=== PATIENT | female | born 1935 | race Caucasian/White ===

== ENCOUNTER → 2016-09-19 | Outpatient (CLI) | payer OTHER ==
[~2016-09-19] MED LIST: ASPI81TA28 PO; ATEN50TA8 PO; CHOL100010 PO; CRS/10 PO; HYDR25TA4 PO; LOSA50TA6 PO; LUTE15CA PO; MAGN400T6 PO; OMEP40CA PO; POTA1TAB97 PO
[2016-09-19 14:57] LABS: BASO % 0.4 %; BASO ABS # 0.04 K/uL (0-0.2); COMPLETE YES; EOS % 2.8 %; HEMATOCRIT 39.7 % (37-47); IG% 0.1 %; LYMPH % 40.1 %; LYMPH ABS # 3.69 K/uL (1.2-3.4); MEAN CORPUSCULAR HEMOGLOBIN 32.5 pg (25-34); MEAN CORPUSCULAR HGB CONC 34.3 g/dl (32-36); MEAN PLATELET VOLUME 11.2 fL (7.4-10.4); MONO % 7.8 %; NEUT % 48.8 %; PLATELET COUNT 240 K/uL (130-400); RED BLOOD COUNT 4.18 M/uL (4.2-5.4)
[2016-09-19 15:10] LABS: ALT/SGPT 31 U/L (12-78); AST/SGOT 21 U/L (15-37); BLOOD UREA NITROGEN 17 mg/dl (7-18); BUN/CREATININE RATIO 17.3 (10-20); CALCIUM 9.9 mg/dl (8.5-10.1); CARBON DIOXIDE 31 mmol/L (21-32); CHLORIDE 102 mmol/L (98-107); GLUCOSE 84 mg/dl (70-99); MAGNESIUM 2.3 mg/dl (1.8-2.4); POTASSIUM 3.8 mmol/L (3.5-5.1); SODIUM 140 mmol/L (136-145)
[2016-09-19 15:17] LABS: ALKALINE PHOSPHATASE 74 U/L (45-117); CHOLESTEROL 222 mg/dl (0-200); HDL CHOLESTEROL 75 mg/dl; LDL CHOLESTEROL CALCULATED 112 mg/dl; TRIGLYCERIDES 174 mg/dl (0-150); VERY LOW DENSITY LIPOPROT CALC 35 mg/dl
--- NOTE | 2016-09-23 12:19 | CODING QUERY MEDICAL NECESSITY ---
SUPPORTING DIAGNOSIS NEEDED Dr. Degroot, A supporting diagnosis is required for the test/procedure performed on this patient in order for us to be reimbursed by the patient's insurance. Please provide a supporting diagnosis for the following test/procedure listed below next to the test name along with your signature. *If there is no additional diagnosis for this patient that would support the following test/procedure please document that below next to the test/procedure. Test(s)/Procedure(s) that require a supporting diagnosis: * ([id number]) VITAMIN D ASSAY DIAGNOSIS: DATE OF SERVICE: 09/19/16 Provider Signature: Date: Thank you Calvin Olmstead [facility] Information Management Once completed, please kindly fax back to [phone] For questions please call [phone]
== END | disposition home or self-care (01) ==
LOC: C.LABBC 09:52
PROVIDERS: ATTEND Family Medicine
DX: I10 Essential (primary) hypertension (principal); M85.80 Other specified disorders of bone density and structure, unspecified site; E78.5 Hyperlipidemia, unspecified; Z13.0 Encounter for screening for diseases of the blood and blood-forming organs and certain disorders involving the immune mechanism

== ENCOUNTER 2017-08-28 16:25 | Inpatient (IN) | payer OTHER ==
[~2017-08-28] VITALS: Ht 162.6 cm; Wt 53.0 kg
[2017-08-28] MEDS ORDERED: ACET1TAB84 PO (18:53)
[2017-08-28] MEDS ORDERED: NOTE (18:55)
[2017-08-28 19:01] LABS: ALBUMIN 3.5 gm/dl (3.4-5.0); ALT/SGPT 20 U/L (12-78); AST/SGOT 83 U/L (15-37); BLOOD UREA NITROGEN 19 mg/dl (7-18); CALCIUM 9.3 mg/dl (8.5-10.1); CARBON DIOXIDE 22 mmol/L (21-32); CREATININE 1.25 mg/dl (0.60-1.20); GLUCOSE 97 mg/dl (70-99); LIPASE 682 U/L (73-393); POTASSIUM 3.5 mmol/L (3.5-5.1); SODIUM 140 mmol/L (136-145)
--- NOTE | 2017-08-28 19:04 | DIAGNOSTIC IMAGING REPORT ---
(CHEST) THORAX WITHOUT CLINICAL HISTORY: Acute change in mental status PULMONARY MASS COMPARISON STUDY: December 2005 CT DOSE: 178.15 mGy.cm TECHNIQUE: CT of the thorax was performed from the thoracic inlet to the lung bases. Images are reviewed in the axial, sagittal, and coronal planes. IV contrast was not administered for this examination. A dose lowering technique was utilized adhering to the principles of ALARA. FINDINGS: Thyroid: Imaged portions of the thyroid gland are normal in appearance. Thoracic aorta: The thoracic aorta is normal in course and caliber, noting standard 3 vessel arch anatomy. Heart: The heart is normal in size and configuration, without pericardial effusion. Lungs and pleural spaces: There is an enlarging nodular airspace opacity within the left upper lobe measuring 52 x 32 x 45 mm. This is more elongated than is typical for neoplasm. The slow growth plate would also be unusual for neoplasm. Nevertheless the lesion is indeterminate, and pulmonary consultation consideration of follow-up bronchoscopy should be obtained. Right middle lobe atelectatic changes are visualized Mediastinum: There is mild mediastinal lymphadenopathy. There is a 15 mm subcarinal lymph node. There are borderline enlarged paratracheal and prevascular lymph nodes. Rbittney: Evaluation the hilar structures is difficult due to the lack of intravenous contrast. Prominent left hilar lymph nodes are suspected. Axilla: Since the prior study, the patient has developed left axillary lymphadenopathy. Upper abdomen: Partially visualized upper abdominal viscera is within normal limits. Skeletal structures: The bony trabecular pattern is somewhat mottled. While this may simply represent osteoporosis, one cannot exclude a diffuse infiltrative marrow process. IMPRESSION: 1. Enlarging nodular airspace opacity within the left upper lobe measuring 52 x 32 x 45 mm. As stated above, this is more elongated than is typical for neoplasm. In addition, this lesion was present in 2005 although it has increased in size. Pulmonary consultation is recommended in follow-up, as an unusual slowly growing neoplasm cannot be excluded. 2. Interval development of mild mediastinal lymphadenopathy 3. Interval development of left axillary lymphadenopathy 4. Mottled bony trabecular pattern Electronically signed by: Moi Best M.D. 08/28/2017 7:02 PM Dictated Date/Time: 08/28/2017 6:52 PM
[2017-08-28 19:05] LABS: HEMATOCRIT 32.9 % (37-47); MEAN CORPUSCULAR HEMOGLOBIN 31.4 pg (25-34); MEAN CORPUSCULAR HGB CONC 33.4 g/dl (32-36); NUCLEATED RED BLOOD CELL ABS 0.24 K/uL (0-0); PLATELET COUNT 96 K/uL (130-400); RED CELL DISTRIBUTION WIDTH CV 15.7 % (11.5-14.5); RED CELL DISTRIBUTION WIDTH SD 53.5 fL (36.4-46.3); WHITE BLOOD COUNT 16.06 K/uL (4.8-10.8)
[2017-08-28 19:06] LABS: ALKALINE PHOSPHATASE 792 U/L (45-117); TOTAL PROTEIN 7.4 gm/dl (6.4-8.2)
[2017-08-28 19:07] LABS: BASO % 0.6 %; EOS % 5.1 %; EOS ABS # 0.82 K/uL (0-0.5); IG# 0.42 K/uL (0.00-0.02); LYMPH ABS # 3.85 K/uL (1.2-3.4); MONO % 8.3 %; MONO ABS # 1.34 K/uL (0.11-0.59); NEUT % 59.4 %; NEUT ABS # 9.53 K/uL (1.4-6.5)
[2017-08-28 19:19] LABS: INR 1.3 (0.9-1.1); PTT PATIENT 27.1 SECONDS (21.0-31.0)
--- NOTE | 2017-08-28 19:41 | DIAGNOSTIC IMAGING REPORT ---
CHEST 2 VIEWS ROUTINE HISTORY: Altered mental status. COMPARISON: Chest CT 08/28/2017. Chest 06/20/2015. FINDINGS: No pneumothorax. No pleural effusions. The heart is normal in size. Increase in size in the 2.5 x 1.2 cm nodular density within the left upper lobe compared to the 2015 examination. Mild diffuse interstitial thickening has also progressed. IMPRESSION: 1. Mild diffuse interstitial thickening which has progressed. 2. Increase in size in the nonspecific 2.5 x 1.2 cm left upper lobe nodular density. This is better appreciated on the same day chest CT. Electronically signed by: Deshawn Cobos M.D. 08/28/2017 7:39 PM Dictated Date/Time: 08/28/2017 7:38 PM
[2017-08-28 20:06] LABS: INFLUENZA B ANTIGEN Neg for Influ B (NEG)
--- NOTE | 2017-08-28 21:05 | DIAGNOSTIC IMAGING REPORT ---
HEAD CT NONCONTRAST CT DOSE: 614.27 mGy.cm HISTORY: Altered mental status. TECHNIQUE: Multiaxial CT images of the head were performed without the use of intravenous contrast. Automated exposure control was utilized for this study. A dose lowering technique was utilized adhering to the principles of ALARA. Comparison: Head CT 03/06/2013. Findings: The paranasal sinuses and mastoid air cells are clear. The calvarium and skull base are intact. There is no mass, hematoma, midline shift, acute infarct. White matter hypodensity is nonspecific but suggestive of microvascular ischemic change. The ventricles and sulci demonstrate mild age-related involutional changes. Hypodensity within the left parietal lobe. This is new from the prior study but favors a chronic finding.. 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 Impression: 1. No acute intracranial abnormality. 2. Hypodensity within the left parietal lobe. 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 Electronically signed by: Deshawn Cobos M.D. 08/28/2017 9:03 PM Dictated Date/Time: 08/28/2017 8:55 PM
[2017-08-28] MEDS ORDERED: LORAZEPAM 2 MG/ML 1 ML VIAL IV STA (21:44)
[2017-08-28] MEDS ORDERED: ACETAMINOPHEN 325 MG TAB PO PRN (22:45)
[2017-08-28] MEDS ORDERED: ONDANSETRON INJ 2 MG/ML 2 ML VIAL IV PRN (22:45)
[2017-08-28] MEDS ORDERED: POLYETHYLENE (MIRALAX) 17 GM PACK PO PRN (22:45)
[2017-08-28] MEDS ORDERED: HEPARIN SOD 5000 UNIT/0.5 ML CARP SQ SCH (22:45)
--- NOTE | 2017-08-28 22:56 | EMERGENCY ROOM VISIT NOTE ---
History Report prepared by Noah: Heather York Under the Supervision of: Dr. Richard Longoria M.D. First contact with patient: 17:51 Chief Complaint: CONFUSION Stated Complaint: CONFUSION,WEAKNESS,PASSED OUT,RAMBLING Nursing Triage Summary: pt arrives with family ,pt with hx of alzheimers / dementia. reports pt has had increased confusion over the last week pt has had recent labs for liver function and these were elevated daughter reports recent episodes of "feeling dizzy , pt reports afraid all the time" History of Present Illness The patient is an 82 year old female who presents to the Emergency Room with complaints of worsening confusion starting 1 month ago. The patient's 6 months ago and the patient has been having a difficult time adjusting. The patient has a history of Alzheimer's dementia. She fell around 1 month ago and has been worsening since then. She has been rambling and getting argumentative. A couple days ago, she wandered away and got lost. Last week, she went to her PCP who found that her liver tests were elevated. Her daughter took her off all her medications because they seemed to make her confusion worse. The patient lives with a family member, but she is often alone as he works full time staff interpreter. She has been eating well. She denies any back pain or abdominal pain. She has lost weight. Source of History: patient, family Onset: 1 month ago Position: other (global) Quality: numbness (confusion) Timing: worsening Associated Symptoms: No abdominal pain, No back pain Review of Systems See HPI for pertinent positives and negatives. A total of ten systems were reviewed and were otherwise negative. Past Medical & Surgical Medical Problems: (1) Altered mental status (2) Gastric ulcer (3) HTN (hypertension) (4) Lung abnormality (5) Pneumonia Family History Hypertension Social History Smoking Status: Never Smoker Drug Use: none Marital Status: Occupation Status: retired Current/Historical Medications Scheduled Aspirin (Aspir-81), 1 TAB PO DAILY Losartan Potassium (Cozaar), 50 MG PO DAILY Scheduled PRN Acetaminophen (Tylenol Arthritis Ext Rel), 650 MG PO Q12 PRN for Pain Hydroxyzine Hcl (Hydroxyzine Hcl), 5 ML PO TID PRN for Anxiety Miscellaneous Medications [Note] Allergies Coded Allergies: Statins (Verified Adverse Reaction, Unknown, severe muscle pain, 12/21/15) Physical Exam Vital Signs Date Time Temp Pulse Resp B/P (MAP) Pulse Ox O2 Delivery O2 Flow Rate FiO2 08/28/17 22:48 96 16 143/122 95 Room Air 08/28/17 22:33 92 08/28/17 21:31 188/167 08/28/17 21:30 109 28 97 08/28/17 21:19 99 20 187/101 96 Room Air 08/28/17 20:21 104 20 162/103 95 Room Air 08/28/17 18:33 86 08/28/17 18:27 91 12 193/101 95 Room Air 08/28/17 16:45 36.7 92 20 193/73 95 Room Air Physical Exam Physical Exam GENERAL: She is alert and oriented x1. She appears well-developed and well- nourished. She does not appear distressed. ____ HENT: Exam performed. Head: Normocephalic and atraumatic. Right Ear: External ear normal. No mastoid tenderness. Left Ear: External ear normal. No mastoid tenderness. Mouth/Throat: The oropharynx is clear and moist. No trismus in the jaw. No dental abscesses or uvula swelling. No oropharyngeal exudate or tonsillar abscesses. ____ EYES: Conjunctivae and EOM are normal. Pupils are equal, round, and reactive to light. Right eye exhibits no discharge. Left eye exhibits no discharge. No scleral icterus. ____ NECK: Normal range of motion. Neck supple. No JVD present. No spinous process tenderness present. No carotid bruit present. No rigidity. No tracheal deviation and normal range of motion present. No Brudzinski's sign and no Kernig 's sign noted. ____ CV: Normal rate, regular rhythm, normal heart sounds and intact distal pulses. There is no peripheral edema. Palpable radial pulses bue. ____ PULM/CHEST: Effort normal and breath sounds normal. No respiratory distress. No stridor. She has no wheezes. She has no rales. Chest Wall: She exhibits no tenderness. ____ ABD: The abdomen is soft. Bowel sounds are normal. She has no distension. No mass is present. There is no tenderness. There is no rebound, no guarding, no Junior's sign and no tenderness at McBurney's point. Rovsig negative MUSC/SKEL: Normal range of motion. There is no peripheral edema, tenderness or deformity. LYMPH: No cervical adenopathy. ____ NEURO: She is alert and oriented x1. She has normal strength. No cranial nerve deficit or sensory deficit. Coordination and gait normal. SKIN: Skin is warm and dry. She is not diaphoretic. ____ PSYCH: She has an agitated mood____ Medical Decision & Procedures ER Provider Diagnostic Interpretation: Radiology results as stated below per my review and radiologist interpretation: CHEST 2 VIEWS ROUTINE HISTORY: Altered mental status. COMPARISON: Chest CT 08/28/2017. Chest 06/20/2015. FINDINGS: No pneumothorax. No pleural effusions. The heart is normal in size. Increase in size in the 2.5 x 1.2 cm nodular density within the left upper lobe compared to the 2015 examination. Mild diffuse interstitial thickening has also progressed. IMPRESSION: 1. Mild diffuse interstitial thickening which has progressed. 2. Increase in size in the nonspecific 2.5 x 1.2 cm left upper lobe nodular density. This is better appreciated on the same day chest CT. Electronically signed by: Deshawn Cobos M.D. 08/28/2017 7:39 PM Dictated Date/Time: 08/28/2017 7:38 PM (CHEST) THORAX WITHOUT CLINICAL HISTORY: Acute change in mental status PULMONARY MASS COMPARISON STUDY: December 2005 CT DOSE: 178.15 mGy.cm TECHNIQUE: CT of the thorax was performed from the thoracic inlet to the lung bases. Images are reviewed in the axial, sagittal, and coronal planes. IV contrast was not administered for this examination. A dose lowering technique was utilized adhering to the principles of ALARA. FINDINGS: Thyroid: Imaged portions of the thyroid gland are normal in appearance. Thoracic aorta: The thoracic aorta is normal in course and caliber, noting standard 3 vessel arch anatomy. Heart: The heart is normal in size and configuration, without pericardial effusion. Lungs and pleural spaces: There is an enlarging nodular airspace opacity within the left upper lobe measuring 52 x 32 x 45 mm. This is more elongated than is typical for neoplasm. The slow growth plate would also be unusual for neoplasm. Nevertheless the lesion is indeterminate, and pulmonary consultation consideration of follow-up bronchoscopy should be obtained. Right middle lobe atelectatic changes are visualized Mediastinum: There is mild mediastinal lymphadenopathy. There is a 15 mm subcarinal lymph node. There are borderline enlarged paratracheal and prevascular lymph nodes. Brittney: Evaluation the hilar structures is difficult due to the lack of intravenous contrast. Prominent left hilar lymph nodes are suspected. Axilla: Since the prior study, the patient has developed left axillary lymphadenopathy. Upper abdomen: Partially visualized upper abdominal viscera is within normal limits. Skeletal structures: The bony trabecular pattern is somewhat mottled. While this may simply represent osteoporosis, one cannot exclude a diffuse infiltrative marrow process. IMPRESSION: 1. Enlarging nodular airspace opacity within the left upper lobe measuring 52 x 32 x 45 mm. As stated above, this is more elongated than is typical for neoplasm. In addition, this lesion was present in 2005 although it has increased in size. Pulmonary consultation is recommended in follow-up, as an unusual slowly growing neoplasm cannot be excluded. 2. Interval development of mild mediastinal lymphadenopathy 3. Interval development of left axillary lymphadenopathy 4. Mottled bony trabecular pattern Electronically signed by: Moi Best M.D. 08/28/2017 7:02 PM Dictated Date/Time: 08/28/2017 6:[address] CT DOSE: 614.27 mGy.cm HISTORY: Altered mental status. TECHNIQUE: Multiaxial CT images of the head were performed without the use of intravenous contrast. Automated exposure control was utilized for this study. A dose lowering technique was utilized adhering to the principles of ALARA. Comparison: Head CT 03/06/2013. Findings: The paranasal sinuses and mastoid air cells are clear. The calvarium and skull base are intact. There is no mass, hematoma, midline shift, acute infarct. White matter hypodensity is nonspecific but suggestive of microvascular ischemic change. The ventricles and sulci demonstrate mild age-related involutional changes. Hypodensity within the left parietal lobe. This is new from the prior study but favors a chronic finding.. 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 Impression: 1. No acute intracranial abnormality. 2. Hypodensity within the left parietal lobe. 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 Electronically signed by: Deshawn Cobos M.D. 08/28/2017 9:03 PM Dictated Date/Time: 08/28/2017 8:55 PM Laboratory Results 08/28/17 18:22 Red Blood Count 3.50, Mean Corpuscular Volume 94.0, Mean Corpuscular Hemoglobin 31.4, Mean Corpuscular Hemoglobin Concent 33.4, Mean Platelet Volume 12.0, Neutrophils (%) (Auto) 59.4, Lymphocytes (%) (Auto) 24.0, Monocytes (%) (Auto) 8.3, Eosinophils (%) (Auto) 5.1, Basophils (%) (Auto) 0.6, Neutrophils # (Auto) 9.53, Lymphocytes # (Auto) 3.85, Monocytes # (Auto) 1.34, Eosinophils # (Auto) 0.82, Basophils # (Auto) 0.10 08/28/17 18:22 Test 08/28/17 16:50 08/28/17 18:22 08/28/17 18:23 08/28/17 18:32 Urine Color YELLOW Urine Appearance CLEAR (CLEAR) Urine pH 5.5 (4.5-7.5) Urine Specific [place] 1.016 (1.000-1.030) Urine Protein 1+ (NEG) Urine Glucose (UA) NEG (NEG) Urine Ketones NEG (NEG) Urine Occult Blood 2+ (NEG) Urine Nitrite NEG (NEG) Urine Bilirubin NEG (NEG) Urine Urobilinogen NEG (NEG) Urine Leukocyte Esterase MODERATE (NEG) Urine WBC (Auto) 5-10 /hpf (0-5) Urine RBC (Auto) 5-10 /hpf (0-4) Urine Hyaline Casts (Auto) 1-5 /lpf (0-5) Urine Epithelial Cells (Auto) >30 /lpf (0-5) Urine Bacteria (Auto) NEG (NEG) Urine Pathogenic Casts 0-3 RBC CASTS /lpf (0) White Blood Count 16.06 K/uL (4.8-10.8) Red Blood Count 3.50 M/uL (4.2-5.4) Hemoglobin 11.0 g/dL (12.0-16.0) Hematocrit 32.9 % (37-47) Mean Corpuscular Volume 94.0 fL (80-100) Mean Corpuscular Hemoglobin 31.4 pg (25-34) Mean Corpuscular Hemoglobin Concent 33.4 g/dl (32-36) Platelet Count 96 K/uL (130-400) Mean Platelet Volume 12.0 fL (7.4-10.4) Neutrophils (%) (Auto) 59.4 % Lymphocytes (%) (Auto) 24.0 % Monocytes (%) (Auto) 8.3 % Eosinophils (%) (Auto) 5.1 % Basophils (%) (Auto) 0.6 % Neutrophils # (Auto) 9.53 K/uL (1.4-6.5) Lymphocytes # (Auto) 3.85 K/uL (1.2-3.4) Monocytes # (Auto) 1.34 K/uL (0.11-0.59) Eosinophils # (Auto) 0.82 K/uL (0-0.5) Basophils # (Auto) 0.10 K/uL (0-0.2) RDW Standard Deviation 53.5 fL (36.4-46.3) RDW Coefficient of Variation 15.7 % (11.5-14.5) Immature Granulocyte % (Auto) 2.6 % Immature Granulocyte # (Auto) 0.42 K/uL (0.00-0.02) Nucleated RBC Absolute Count (auto) 0.24 K/uL (0-0) Nucleated Red Blood Cells % 1.5 % Platelet Estimate DECREASED Prothrombin Time 13.6 SECONDS (9.0-12.0) Prothromb Time International Ratio 1.3 (0.9-1.1) Activated Partial Thromboplast Time 27.1 SECONDS (21.0-31.0) Partial Thromboplastin Ratio 1.0 Venous Blood pH 7.42 (7.36-7.41) Venous Blood Partial Pressure CO2 38 mmHg (38.0-50.0) Venous Blood Partial Pressure O2 33 mmHg Venous Blood HCO3 24 mmol/L Venous Blood Oxygen Saturation < 60.0 % Venous Blood Base Excess -0.2 mEq/L Anion Gap 12.0 mmol/L (3-11) Est Creatinine Clear Calc Drug Dose 29.5 ml/min Estimated GFR () 46.1 Estimated GFR (Non- 39.7 BUN/Creatinine Ratio 14.9 (10-20) Lactic Acid Level 1.7 mmol/L (0.4-2.0) Calcium Level 9.3 mg/dl (8.5-10.1) Total Bilirubin 0.7 mg/dl (0.2-1) Aspartate Amino Transf (AST/SGOT) 83 U/L (15-37) Alanine Aminotransferase (ALT/SGPT) 20 U/L (12-78) Alkaline Phosphatase 792 U/L (45-117) Ammonia 26.3 umol/L (11-32) Troponin I < 0.015 ng/ml (0-0.045) Total Protein 7.4 gm/dl (6.4-8.2) Albumin 3.5 gm/dl (3.4-5.0) Globulin 3.9 gm/dl (2.5-4.0) Albumin/Globulin Ratio 0.9 (0.9-2) Lipase 682 U/L (73-393) Bedside Glucose 101 mg/dl (70-90) Influenza Type A Antigen Neg for Influ A (NEG) Influenza Type B Antigen Neg for Influ B (NEG) Laboratory results reviewed by me Medications Administered Medications (Trade) Dose Ordered Sig/Jagdeep Route Start Time Stop Time Status Last Admin Dose Admin Lorazepam (Ativan Inj) 1 mg NOW STAT IV 08/28/17 21:44 08/28/17 21:45 DC 08/28/17 21:53 1 MG ECG Per My Interpretation Indication: altered mental status Rate (beats per minute): 84 Rhythm: sinus rhythm Findings: other (GA, QRS, QTc within normal limits, no ST elevation or ST depression) ED Course 1757: The patient was evaluated in room C10. A complete history and physical exam was performed. 2137: VSS. Pt is agitated, trying to get up out of bed. Family states she needs to be calmed down. I will order 1 mg Ativan. Urine is contaminated. Labs show elevated white count at 16. Pt has remained afebrile, no meningeal signs. Unsure of the source of leukocytosis. CT chest shows no acute infiltrate, but a possible neoplasm which might be the cause of the leukocytosis. Patients daughter is the medical POA was made aware of the findings. She agrees with admission for further workup and placement in snf. Pt will be admitted to the hospitalist service. Patient's daughter at bedside states she is the medical power of assistant district attorney and should any questions arise overnight she can be contacted on her cell phone [phone], her name is Felecia. 2140: I discussed the patient's case with Dr. Sherman, [facility] hospitalist. The patient will be evaluated for further treatment and disposition. Medical Decision VSS. Pt is agitated, trying to get up out of bed. Family states she needs to be calmed down. I will order 1 mg Ativan. Urine is contaminated. Labs show elevated white count at 16. Pt has remained afebrile, no meningeal signs. Unsure of the source of leukocytosis. CT chest shows no acute infiltrate, but a possible neoplasm which might be the cause of the leukocytosis. Patients daughter is the medical POA was made aware of the findings. She agrees with admission for further workup and placement in snf. Pt will be admitted to the hospitalist service. Patient's daughter at bedside states she is the medical power of assistant district attorney and should any questions arise overnight she can be contacted on her cell phone [phone], her name is Felecia. Medication Reconcilliation Current Medication List: was personally reviewed by me Blood Pressure Screening Patient's blood pressure: Elevated blood pressure Blood pressure disposition: Referred to PCP Consults Time Called: 2137 Consulting Physician: Dr. Sherman [facility] Returned Call: 2140 Discussed the patient's case. The patient will be evaluated for further treatment and disposition. Impression Primary Impression: Lung mass Scribe Attestation The scribe's documentation has been prepared under my direction and personally reviewed by me in its entirety. I confirm that the note above accurately reflects all work, treatment, procedures, and medical decision making performed by me. The chart was completed utilizing [employer]mobile Speech voice recognition software. Grammatical errors, random word insertions, pronoun errors, and incomplete sentences are an occasional consequence of this system due to software limitations, ambient noise, and hardware issues. Any formal questions or concerns about the content, text, or information contained within the body of this dictation should be directly addressed to the physician for clarification. Departure Information Dispostion Being Evaluated By Hospitalist Referrals Gael Bautista III, M.D. (PCP) Patient Instructions My [facility]
[2017-08-28] MEDS ORDERED: LOSA50TA6 PO (23:39)
[2017-08-28] MEDS ORDERED: ASPI-232 PO (23:39)
[2017-08-28] MEDS ORDERED: HYDR1SYP PO (23:39)
[2017-08-29] VITALS (8 sets, daily range): BP systolic 153–195; BP diastolic 75–88; PULSE 81–90; TEMP 36.4–36.9; O2SAT 93–94; Ht 162.6 cm; Wt 53.0 kg
--- NOTE | 2017-08-29 02:03 | History and Physical ---
History & Physical Date & Time of Service: Aug 28, 2017 at 10:32 Chief Complaint: Ams, Lung Abnormality Primary Care Physician: Gael Bautista III, M.D. History of Present Illness Source: family, clinic records, hospital records Patient is an 82 yo female who was brought from home by her daughter for complaints that the patient needs placement and 24 hour supervision. The patient was reportedly lost and wandering her neighborhood and has become increasingly confused, neglectful, and forgetful since last summer. The patient was seen after she received ativan and thus she was unable to provide any ROS or history. All information was obtained from the patient's daughter and the medical records. The patient has been steadily declining since last summer when her of 60+ years . Since then the patient experienced stages of grief but also stopped eating, lost weight, became angry, withdrawn, and forgetful. The patient resides with her grandson who works during the day and the patient is home alone. The daughter lives in [place] and her brother in [place] so no other family is around. The patient has been neglecting herself, her 2 dogs, and her plants which is very unlike her. She also has a great deal of difficulty recalling short term memories. She has had outpatient work up and is demonstrating dementia, but she has drastically declined in the past 1 month and the patient is no longer safe living at home where she is alone for much of the day. The patient's daughter is here from [place] and has been looking into placement but the events from yesterday have escalated the need to find a place for the patient to live. No focal deficits noted by the family; appetite has remained poor, patient ambulates independently. The patient did have a fall earlier this month but was not brought to the hospital at the time. The patient' s daughter also reports that the patient has not slept in the last few days and that prior to her visiting, the patient was administering her own medications and was sometimes taking double doses and thus the daughter stopped all the meds for the last week. Past Medical/Surgical History Medical Problems: (1) Altered mental status (2) Hx of Gastric ulcer (3) HTN (hypertension) (4) CKD Stage III Family History Hypertension Social History Smoking Status: Never Smoker Drug Use: none Marital Status: Housing status: lives with family Occupational Status: retired Immunizations History of Influenza Vaccine: Yes History of Tetanus Vaccine?: Unknown History of Pneumococcal: Yes History of Hepatitis B Vaccine: No Multi-Drug Resistant Organisms History of MDRO: No Allergies Coded Allergies: Statins (Verified Adverse Reaction, Unknown, severe muscle pain, 12/21/15) Home Medications Scheduled Aspirin (Aspir-81), 1 TAB PO DAILY Losartan Potassium (Cozaar), 50 MG PO DAILY Scheduled PRN Acetaminophen (Tylenol Arthritis Ext Rel), 650 MG PO Q12 PRN for Pain Hydroxyzine Hcl (Hydroxyzine Hcl), 5 ML PO TID PRN for Anxiety Miscellaneous Medications [Note] Review of Systems Unable to obtain due to patient mentation Physical Exam Vital Signs Date Time Temp Pulse Resp B/P (MAP) Pulse Ox O2 Delivery O2 Flow Rate FiO2 08/29/17 01:17 36.4 88 18 195/84 Room Air 08/29/17 00:14 82 18 141/99 96 Room Air 08/28/17 22:48 96 16 143/122 95 Room Air 08/28/17 22:33 92 08/28/17 21:31 188/167 08/28/17 21:30 109 28 97 08/28/17 21:19 99 20 187/101 96 Room Air 08/28/17 20:21 104 20 162/103 95 Room Air 08/28/17 18:33 86 08/28/17 18:27 91 12 193/101 95 Room Air 08/28/17 16:45 36.7 92 20 193/73 95 Room Air General Appearance: WD/WN, no apparent distress Head: normocephalic, atraumatic Eyes: PERRL, EOMI, sclerae normal ENT: hearing grossly normal Neck: supple, no JVD, no carotid bruits, trachea midline Respiratory/Chest: chest non-tender, lungs clear, normal breath sounds, no respiratory distress, no accessory muscle use Cardiovascular: regular rate, rhythm, no edema, no gallop, no JVD, no murmur Abdomen/GI: normal bowel sounds, non tender, soft, no organomegaly Back: normal inspection Extremities/Musculoskelatal: no calf tenderness, normal capillary refill, + pedal edema Neurologic/Psych: + depressed affect, + disoriented, + pertinent finding Skin: normal color, warm/dry, no rash Diagnostics Laboratory Results Results Past 24 Hours Test 2/26/18 16:50 08/28/17 18:22 08/28/17 18:23 08/28/17 18:32 Range/Units Urine Color YELLOW Urine Appearance CLEAR CLEAR Urine pH 5.5 4.5-7.5 Urine Specific [place] 1.016 1.000-1.030 Urine Protein 1+ NEG Urine Glucose (UA) NEG NEG Urine Ketones NEG NEG Urine Occult Blood 2+ NEG Urine Nitrite NEG NEG Urine Bilirubin NEG NEG Urine Urobilinogen NEG NEG Urine Leukocyte Esterase MODERATE NEG Urine WBC (Auto) 5-10 0-5 /hpf Urine RBC (Auto) 5-10 0-4 /hpf Urine Hyaline Casts (Auto) 1-5 0-5 /lpf Urine Epithelial Cells (Auto) >30 0-5 /lpf Urine Bacteria (Auto) NEG NEG Urine Pathogenic Casts 0-3 RBC CASTS 0 /lpf White Blood Count 16.06 4.8-10.8 K/uL Red Blood Count 3.50 4.2-5.4 M/uL Hemoglobin 11.0 12.0-16.0 g/dL Hematocrit 32.9 37-47 % Mean Corpuscular Volume 94.0 80-100 fL Mean Corpuscular Hemoglobin 31.4 25-34 pg Mean Corpuscular Hemoglobin Concent 33.4 32-36 g/dl Platelet Count 96 130-400 K/uL Mean Platelet Volume 12.0 7.4-10.4 fL Neutrophils (%) (Auto) 59.4 % Lymphocytes (%) (Auto) 24.0 % Monocytes (%) (Auto) 8.3 % Eosinophils (%) (Auto) 5.1 % Basophils (%) (Auto) 0.6 % Neutrophils # (Auto) 9.53 1.4-6.5 K/uL Lymphocytes # (Auto) 3.85 1.2-3.4 K/uL Monocytes # (Auto) 1.34 0.11-0.59 K/uL Eosinophils # (Auto) 0.82 0-0.5 K/uL Basophils # (Auto) 0.10 0-0.2 K/uL RDW Standard Deviation 53.5 36.4-46.3 fL RDW Coefficient of Variation 15.7 11.5-14.5 % Immature Granulocyte % (Auto) 2.6 % Immature Granulocyte # (Auto) 0.42 0.00-0.02 K/uL Nucleated RBC Absolute Count (auto) 0.24 0-0 K/uL Nucleated Red Blood Cells % 1.5 % Platelet Estimate DECREASED Prothrombin Time 13.6 9.0-12.0 SECONDS Prothromb Time International Ratio 1.3 0.9-1.1 Activated Partial Thromboplast Time 27.1 21.0-31.0 SECONDS Partial Thromboplastin Ratio 1.0 Venous Blood pH 7.42 7.36-7.41 Venous Blood Partial Pressure CO2 38 38.0-50.0 mmHg Venous Blood Partial Pressure O2 33 mmHg Venous Blood HCO3 24 mmol/L Venous Blood Oxygen Saturation < 60.0 % Venous Blood Base Excess -0.2 mEq/L Sodium Level 140 136-145 mmol/L Potassium Level 3.5 3.5-5.1 mmol/L Chloride Level 106 98-107 mmol/L Carbon Dioxide Level 22 21-32 mmol/L Anion Gap 12.0 3-11 mmol/L Blood Urea Nitrogen 19 7-18 mg/dl Creatinine 1.25 0.60-1.20 mg/dl Est Creatinine Clear Calc Drug Dose 29.5 ml/min Estimated GFR () 46.1 Estimated GFR (Non- 39.7 BUN/Creatinine Ratio 14.9 10-20 Random Glucose 97 70-99 mg/dl Lactic Acid Level 1.7 0.4-2.0 mmol/L Calcium Level 9.3 8.5-10.1 mg/dl Total Bilirubin 0.7 0.2-1 mg/dl Aspartate Amino Transf (AST/SGOT) 83 15-37 U/L Alanine Aminotransferase (ALT/SGPT) 20 12-78 U/L Alkaline Phosphatase 792 45-117 U/L Ammonia 26.3 11-32 umol/L Troponin I < 0.015 0-0.045 ng/ml Total Protein 7.4 6.4-8.2 gm/dl Albumin 3.5 3.4-5.0 gm/dl Globulin 3.9 2.5-4.0 gm/dl Albumin/Globulin Ratio 0.9 0.9-2 Lipase 682 73-393 U/L Bedside Glucose 101 70-90 mg/dl Influenza Type A Antigen Neg for Influ A NEG Influenza Type B Antigen Neg for Influ B NEG Normal EKG Impression Assessment and Plan COGNITIVE DECLINE: -has been undergoing workup as an outpatient and likely has dementia, however symptoms have accelerated in the past month without a clear cause -will evaluate for infection -CT chest showing prominent LN and a slowly increasing opacity which could be a neoplasm; possibly lymphoma -patient's daughter wishes to hold off on Psych or medications for depression until workup is completed 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 on non contrast CT chest -possibly slow growing neoplasm, but was present on a CT scan in 2006 -Pulmonary consulted -outpatient labs revealed elevated alk phos (633) and elevated bone specific alk phos -patient's daughter is interested in full workup of the above as per discussion with her LEUKOCYTOSIS: -with the above comorbidities -have started empiric cetriaxone and azithro to cover pulm source -obtain blood, urine, and sputum cultures as able HTN: -stable -continue home meds Level of Care Telemetry Advanced Directives Existing Living Will: Yes Existing Power of Outside Production Inspector: Yes Resuscitation Status FULL RESUSCITATION (If there is a meaningful chance of recovery per discussion with the patient's daughter/POA) VTE Prophylaxis VTE Risk Assessment Done? Y/N: Yes Risk Level: Moderate
[2017-08-29] MEDS: CEFTRIAXONE SOD INJ 1 GM in DEXTROSE 5% ADD-VANTAGE 50ML 50 ML IV SCH (02:22)
[2017-08-29 05:42] LABS: HEMATOCRIT 28.4 % (37-47); HEMOGLOBIN 9.1 g/dL (12.0-16.0); MEAN CELL VOLUME 94.4 fL (80-100); MEAN CORPUSCULAR HEMOGLOBIN 30.2 pg (25-34); NUCLEATED RED BLOOD CELL ABS 0.19 K/uL (0-0); RED CELL DISTRIBUTION WIDTH CV 15.6 % (11.5-14.5); WHITE BLOOD COUNT 11.96 K/uL (4.8-10.8)
[2017-08-29 05:47] LABS: MEAN PLATELET VOLUME 11.5 fL (7.4-10.4); PLATELET COUNT 76 K/uL (130-400)
[2017-08-29 06:10] LABS: CALCIUM 9.1 mg/dl (8.5-10.1); CREATININE 0.99 mg/dl (0.60-1.20); POTASSIUM 3.7 mmol/L (3.5-5.1)
--- NOTE | 2017-08-29 08:06 | DIAGNOSTIC IMAGING REPORT ---
ABDOMEN LIMITED (US) CLINICAL HISTORY: 82 years-old Female presenting with RUQ, elevated alk phos. TECHNIQUE: Real-time grayscale and limited color Doppler ultrasound imaging of the abdomen limited to the right upper quadrant was performed. COMPARISON: CT from 06/20/2015. FINDINGS: Pancreas: Visualized portions of the pancreatic head and body normal. Liver: Hyperechogenic parenchyma with heterogeneous echotexture, likely indicating fibrosis or steatosis. The liver measures 14.9 cm in maximal sagittal dimension. No sonographic evidence of hepatic mass. Main portal vein patent with normal directional flow. Biliary: No intrahepatic biliary ductal dilatation. Common bile duct measures up to 4 mm in diameter. Gallbladder: Gallstones without evidence of gallbladder distention, wall thickening, or pericholecystic fluid or inflammatory change. Right kidney: Normal in appearance. No hydronephrosis. Ascites: None. IMPRESSION: 1. No cholelithiasis or biliary ductal dilatation. 2. Heterogeneity of liver parenchyma could suggest underlying steatosis or fibrosis. Electronically signed by: Jaocb Soto M.D. 08/29/2017 8:05 AM Dictated Date/Time: 08/29/2017 8:04 AM
[2017-08-29] MEDS: AZITHROMYCIN 250 MG TAB PO SCH (09:04)
--- NOTE | 2017-08-29 09:54 | PULMONARY CONSULTATION ---
DATE OF CONSULTATION: 08/29/2017 TIME: 8:45 p.m. REPORT OF CONSULTATION: The patient was seen in room 401. She is an 82-year-old female who was brought to the Emergency Room yesterday because of progressive confusion. The patient is not a good or reliable historian. The patient has been wandering away from her home. Earlier this week, she apparently was found outside in her [facility] and wandering. The patient herself is unable to give substantial history. After I had seen the patient, her daughter Felecia came and I spoke with her. The patient's grandson has been staying with her. The patient's in 2017. Since then, she has had a downhill course of progressive dementia-like symptoms. She has had a preliminary evaluation by her family doctor, Dr. Gael Bautista. The patient reportedly has been losing weight. Her appetite has decreased a lot. Initially, her family thought that this was just all response to the patient's passing away but it has been much more progressive. Pulmonary consultation is requested because of an abnormal CAT scan of the chest. She did have a chest x-ray done yesterday that suggested a nonspecific density in the left upper lung field. This had increased in prominence compared with the prior chest x-ray done on 06/20/2015. This led to the patient having a CAT scan of the chest done. There is a very irregular nodular airspace opacity in the left upper lobe which measures 52 x 32 x 45 mm. It is more elongated than is typical for a neoplasm. There was a prior CAT scan done in 12/2005. There was a density in the same area back in 2005 but it has changed in shape and contour and it has gotten somewhat larger. Nonetheless, almost for sure, this is the same density which is now 12 years later. The patient reportedly has not had any respiratory symptoms. She denies having any shortness of breath. She states she has an occasional cough, although I do not know if this is reliable. She tells me she had some pain in the left lower chest posteriorly. Her daughter told me that the family doctor had it evaluated and they found a small rib fracture recently. The suspicion is that the patient has been having some falling episodes. Indeed, she seemed to have numerous areas of ecchymosis on her legs. She did have a CAT scan of the chest done when she came in and this showed no acute intracranial abnormality. 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 PAST PULMONARY HISTORY: None. PAST SURGICAL HISTORY: The patient denies any surgeries and none were listed. Based on my exam, it appears she has had prior cataract surgeries and she has a scar in the lower abdominal region. PAST MEDICAL HISTORY: Listed as Alzheimer disease, gastric ulcer, hypertension and childbirth x2. SOCIAL HISTORY: Tobacco, never. ETOH -- rare. ALLERGIES: LISTED ALLERGIES TO STATINS. MEDICATIONS AN OUTPATIENT: 1. Aspirin 81 mg. 2. Hydroxyzine 10 mg per 5 mL, to be taken 5 mL t.i.d. p.r.n. anxiety. 3. Losartan 50 mg daily. REVIEW OF SYSTEMS: This is difficult to obtain as the patient is not oriented. Nonetheless, it would be negative except for the above-mentioned complaints. FAMILY HISTORY: Noncontributory in light of the patient's age of 82 years. We also do not have any definite family history. 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 I could not confirm this, however. PHYSICAL EXAMINATION: GENERAL: The patient is a very pleasant but confused 82-year-old female. She is cooperative. She is alert. She does not know that she is in the hospital. HEENT: Eye exam suggests implants bilaterally. Nasal passages are clear. Mouth exam shows a denture on the top but is otherwise unremarkable. NECK: Palpation of the neck reveals no lymph nodes. Palpation of the axilla did not reveal definite lymph nodes. CHEST: Chest is of normal expansion. VITAL SIGNS: Temperature 36.8. Heart rate is 85 per minute. The rhythm is regular. Blood pressure 167/86. LUNGS: Auscultation of the lung nelson reveals them to be clear bilaterally. Her respiratory rate is 18 breaths per minute. Her oxygen saturation is 94% on room air. ABDOMEN: Examination of the abdomen suggests perhaps some weight loss. Her BMI is only 21.8. Weight is 57.7 kilograms. Bowel sounds are present. The aorta is prominent. I do not hear a definite bruit. I cannot exclude by palpation an abdominal aortic aneurysm. EXTREMITIES: Examination of the extremities reveals numerous areas of ecchymoses on both legs. There is no cyanosis, clubbing or edema. LABORATORY DATA: White count yesterday was 16.06, today it is 11.96. Hemoglobin yesterday 11 and today down to 9.1. Platelets were 96,000 and are now down to 76,000. Coags were not significantly abnormal. INR was 1.3. Urinalysis shows +1 protein, +2 blood, 5-10 WBCs, 5-10 RBCs and negative for bacteria. Venous blood gas showed pH 7.42 with pCO2 of 38 and pO2 of 33. Electrolytes show sodium 140, potassium 3.5, chloride 106, bicarbonate 22. BUN was 19 with a creatinine of 1.25. This morning, the BUN is 16 with a creatinine of 0.99. Blood sugar was 101. Alkaline phosphatase was elevated at 792. AST was elevated at 83. ALT was 20. Lipase was elevated at 682. Flu test was negative. Ultrasound of the abdomen reported no evidence of cholelithiasis or ductal dilation. The pancreatic head and body were normal as visualized. No comment was made regarding the aorta. Heterogeneity of the liver parenchyma could suggest steatosis or fibrosis. IMPRESSION: 1. Nodular airspace opacity, left upper lobe. 2. Mild mediastinal adenopathy. 3. Dementia. 4. Anemia. 5. Thrombocytopenia. 6. Abnormal liver function tests. COMMENTS: I spoke with the patient's daughter Felecia. I have reviewed the prior CAT scan of 2005 and the current CAT scan. There obviously has been an increase in the contour and size of this density. It is not strongly suggestive for neoplasm. In light of the patient's apparent significant dementia and considering the fact that this has been present for over 12 years, I do not think she should need to undergo any biopsy procedures. I do not believe the benefits without outweigh the risks involved. The patient's daughter was agreeable with this perspective. She has other metabolic abnormalities in terms of the laboratory tests that were abnormal as noted above. One could consider doing an ultrasound of the aorta in the abdomen for completeness. I will defer all of that workup to the hospitalist team. I do not believe there is a need to follow this patient regularly. Please feel free to call, however, if I might help in any way regarding a respiratory problem. Thank you for asking me to assist in her care.
--- NOTE | 2017-08-29 17:11 | Progress Note ---
Internal Med Progress Note Date of Service: Aug 29, 2017. Provider Documentation: SUBJECTIVE: resting in bed seems somewhat restless can tell her lui kulkarni, knows that she is in hospital, thinks this is august but tells year as 2017. denies any pain, or sob or nausea afebrile says she wants to go home OBJECTIVE: Vital Signs-as noted below Exam: General-alert and awake. somewhat restless ENT-normal hearing Neck-no neck masses Lungs-cta b/l no wheezing or crackles Heart-s1 and s2 heard regular no murmurs Abdomen-soft bowel sounds present non tender no distension Extremities-no edema no erythema Neuro-alert and awake and oriented x 2 moves extremities Lab data as noted below. 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 on non contrast CT chest Present on a CT scan in 2005 but increased in size now seen by pulmonary and no further workup planned as it is very slow growing and current patient status LEUKOCYTOSIS: Empirically started on cetriaxone and azithro to cover pulm source will f/u cx HTN: on losartan Anemia and thrombocytopenia will f/u iron studies, vitamin b12 and folate levels stool for Hemoccult DVT PROPHYLAXIS scds DISPOSITION monitor in medical floor social service for d/c planning Vital Signs: Date Time Temp Pulse Resp B/P (MAP) Pulse Ox O2 Delivery O2 Flow Rate FiO2 08/29/17 16:30 36.6 90 20 170/79 (109) 93 Room Air 08/29/17 16:00 Room Air 08/29/17 11:16 36.9 81 20 153/75 (101) 94 08/29/17 08:00 Room Air 08/29/17 07:15 167/86 (113) 08/29/17 07:13 36.8 85 20 170/83 (112) 94 08/29/17 05:20 90 171/85 (113) 08/29/17 01:17 36.4 88 18 195/84 Room Air 08/29/17 00:14 82 18 141/99 96 Room Air 08/28/17 22:48 96 16 143/122 95 Room Air 08/28/17 22:33 92 08/28/17 21:31 188/167 08/28/17 21:30 109 28 97 08/28/17 21:19 99 20 187/101 96 Room Air 08/28/17 20:21 104 20 162/103 95 Room Air 08/28/17 18:33 86 08/28/17 18:27 91 12 193/101 95 Room Air Lab Results: Results Past 24 Hours Test 08/28/17 18:22 08/28/17 18:23 08/28/17 18:32 08/29/17 05:13 Range/Units White Blood Count 16.06 11.96 4.8-10.8 K/uL Red Blood Count 3.50 3.01 4.2-5.4 M/uL Hemoglobin 11.0 9.1 12.0-16.0 g/dL Hematocrit 32.9 28.4 37-47 % Mean Corpuscular Volume 94.0 94.4 80-100 fL Mean Corpuscular Hemoglobin 31.4 30.2 25-34 pg Mean Corpuscular Hemoglobin Concent 33.4 32.0 32-36 g/dl Platelet Count 96 76 130-400 K/uL Mean Platelet Volume 12.0 11.5 7.4-10.4 fL Neutrophils (%) (Auto) 59.4 % Lymphocytes (%) (Auto) 24.0 % Monocytes (%) (Auto) 8.3 % Eosinophils (%) (Auto) 5.1 % Basophils (%) (Auto) 0.6 % Neutrophils # (Auto) 9.53 1.4-6.5 K/uL Lymphocytes # (Auto) 3.85 1.2-3.4 K/uL Monocytes # (Auto) 1.34 0.11-0.59 K/uL Eosinophils # (Auto) 0.82 0-0.5 K/uL Basophils # (Auto) 0.10 0-0.2 K/uL RDW Standard Deviation 53.5 53.0 36.4-46.3 fL RDW Coefficient of Variation 15.7 15.6 11.5-14.5 % Immature Granulocyte % (Auto) 2.6 % Immature Granulocyte # (Auto) 0.42 0.00-0.02 K/uL Nucleated RBC Absolute Count (auto) 0.24 0.19 0-0 K/uL Nucleated Red Blood Cells % 1.5 1.6 % Platelet Estimate DECREASED Peripheral Blood Smear Path Consult Prothrombin Time 13.6 9.0-12.0 SECONDS Prothromb Time International Ratio 1.3 0.9-1.1 Activated Partial Thromboplast Time 27.1 21.0-31.0 SECONDS Partial Thromboplastin Ratio 1.0 Venous Blood pH 7.42 7.36-7.41 Venous Blood Partial Pressure CO2 38 38.0-50.0 mmHg Venous Blood Partial Pressure O2 33 mmHg Venous Blood HCO3 24 mmol/L Venous Blood Oxygen Saturation < 60.0 % Venous Blood Base Excess -0.2 mEq/L Sodium Level 140 142 136-145 mmol/L Potassium Level 3.5 3.7 3.5-5.1 mmol/L Chloride Level 106 110 98-107 mmol/L Carbon Dioxide Level 22 24 21-32 mmol/L Anion Gap 12.0 8.0 3-11 mmol/L Blood Urea Nitrogen 19 16 7-18 mg/dl Creatinine 1.25 0.99 0.60-1.20 mg/dl Est Creatinine Clear Calc Drug Dose 29.5 37.2 ml/min Estimated GFR () 46.1 61.1 Estimated GFR (Non- 39.7 52.7 BUN/Creatinine Ratio 14.9 15.9 10-20 Random Glucose 97 82 70-99 mg/dl Lactic Acid Level 1.7 0.4-2.0 mmol/L Calcium Level 9.3 9.1 8.5-10.1 mg/dl Total Bilirubin 0.7 0.2-1 mg/dl Aspartate Amino Transf (AST/SGOT) 83 15-37 U/L Alanine Aminotransferase (ALT/SGPT) 20 12-78 U/L Alkaline Phosphatase 792 45-117 U/L Ammonia 26.3 11-32 umol/L Troponin I < 0.015 0-0.045 ng/ml Total Protein 7.4 6.4-8.2 gm/dl Albumin 3.5 3.4-5.0 gm/dl Globulin 3.9 2.5-4.0 gm/dl Albumin/Globulin Ratio 0.9 0.9-2 Lipase 682 73-393 U/L Bedside Glucose 101 70-90 mg/dl Influenza Type A Antigen Neg for Influ A NEG Influenza Type B Antigen Neg for Influ B NEG
[2017-08-29] MEDS: LORAZEPAM INJ 0.5 MG in SYRINGE 0.75 ML IV PRN (17:22)
[2017-08-30] VITALS (7 sets, daily range): BP systolic 134–187; BP diastolic 74–110; PULSE 83–98; TEMP 36.5–37; O2SAT 94–96
[2017-08-30] MEDS ORDERED: LOSARTAN POTASSIUM 50 MG TAB PO ONE (00:16)
[2017-08-30] MEDS: CEFTRIAXONE SOD INJ 1 GM in DEXTROSE 5% ADD-VANTAGE 50ML 50 ML IV SCH (01:27)
[2017-08-30] MEDS: LORAZEPAM 2 MG/ML 1 ML VIAL IV PRN (03:15)
[2017-08-30] MEDS: LORAZEPAM INJ 0.5 MG in SYRINGE 0.75 ML IV PRN ×2 (03:15→22:42)
--- NOTE | 2017-08-30 06:40 | Clinical Documentation Query ---
CLINICAL DOCUMENTATION QUERY QUERY 1 OF 2 82 yo female who was brought from home by her daughter for complaints that the patient needs placement and 24 hour supervision. The patient was reportedly lost and wandering her neighborhood and has become increasingly confused, neglectful, and forgetful since last summer. She has had outpatient work up and is demonstrating dementia. The patient has been agitated and trying to get out of bed. She requires bed monitoring and medications for agitation. In your clinical opinion is this patient being managed for: ( ) Dementia with behavioral disturbance ( ) Not Agree ( ) Other explanation of clinical findings (Please Explain) ( ) Unable to determine (Please Define) ( ) Need to Discuss The medical record reflects the following clinical findings, treatment, and risk factors. Clinical Indicators: As above Treatment: Bed monitoring, Ativan IV, Haldol IM Risk Factors: Altered mental status, wandering, agitation, combativeness QUERY 2 OF 2 The patient's initial creatinine level was at 1.25, trending down to 0.99. GFR was 39.7 trending up to 52.7. The patient has a documented history of CKD 3. In your clinical opinion is this patient being managed for: ( ) Acute kidney failure, resolved ( ) Not Agree ( ) Other explanation of clinical findings (Please Explain) ( ) Unable to determine (Please Define) ( ) Need to Discuss The medical record reflects the following clinical findings, treatment, and risk factors. Clinical Indicators: As above Treatment: Serial PRPs, fluids Risk Factors: Age, dementia, decreased fluids Please clarify and document your clinical opinion in the progress notes and discharge summary. Terms such as "probable", "suspected", "likely", "questionable", "possible", or "still to be ruled out" are acceptable. IF IN AGREEMENT, YOU MUST DOCUMENT ABOVE DIAGNOSTIC STATEMENT IN DAILY PROGRESS NOTES AND DISCHARGE SUMMARY. This document is not part of the patient's record. Thank You, Christina Delaney RN [phone]
[2017-08-30] MEDS: AZITHROMYCIN 250 MG TAB PO SCH (08:31)
--- NOTE | 2017-08-30 14:55 | Neurology Consultation ---
Neurology Consultation Date of Consultation: Aug 30, 2017. Attending Physician: Ryan Leal MD Primary Care Physician: Gael Bautista III, M.D. Reason for Consultation: progressively worsening confusion History of Present Illness Source: patient, hospital records Phyllis is an 82 yo female who was brought from home by her daughter for complaints that the patient needs placement and 24 hour supervision. She was lost and wandering her neighborhood and has become increasingly confused, neglectful, and forgetful since last summer. She has been steady decline since last summer when her of 60+ years . She was having grief issues and lost weight, became angry, withdrawn, and forgetful. She lives with her grandson who works during the day and the patient is home alone. Her daughter lives in [place] and her brother in [place]. She has been neglecting herself, her 2 dogs, and her plants which is very unlike her. She also has a great deal of difficulty recalling short term memories. She had an out patient work up and diagnoses with dementia but the last month she is no longer safe living at home alone. Her daughter is here from [place] and has been looking for placement but the past few days she felt she needed to be hospitalized due to her MS change. She had a fall earlier this month but was not brought to the hospital at the time. She has been administering her own medications and has been taking them incorrectly. Currently there is no family in room. She is laying in bed but tries to get OOB without assistance. She states she has not pain accept in her left rib area which has a bruise. Past Medical/Surgical History Medical Problems: (1) Abnormal chest xray Status: Acute (2) Diverticulitis Status: Acute (3) Lung mass Status: Acute Social History Smoking Status: Never smoker Smokeless Tobacco Use: No Alcohol Use: none Drug Use: none Marital Status: Occupation Status: retired Allergies Coded Allergies: Statins (Verified Adverse Reaction, Unknown, severe muscle pain, 12/21/15) Current Inpatient Medications Current Inpatient Medications Medications (Trade) Dose Ordered Sig/Jagdeep Route Start Time Stop Time Status Last Admin Dose Admin Acetaminophen (Tylenol Tab) 650 mg Q4H PRN PO 08/28/17 22:45 09/27/17 22:44 Polyethylene (Miralax Powder Packet) 17 gm DAILY PRN PO 08/28/17 22:45 09/27/17 22:44 Ondansetron HCl (Zofran Inj) 4 mg Q6H PRN IV 08/28/17 22:45 09/27/17 22:44 Ceftriaxone Sodium 1 gm/ Dextrose 50 ml @ 100 mls/hr Q24H IV 08/29/17 02:00 09/05/17 01:59 08/30/17 01:27 100 MLS/HR Azithromycin (Zithromax Tab) 500 mg QAM PO 08/29/17 08:00 09/05/17 08:59 08/30/17 08:31 500 MG Haloperidol Lactate (Haldol Inj) 2 mg Q4 PRN IM 08/29/17 17:00 09/28/17 16:59 Lorazepam (Ativan Inj) 0.5 mg Q4H PRN IV 08/29/17 17:00 09/28/17 16:59 08/30/17 03:15 0.5 MG Lorazepam 0.5 mg/ Syringe 1 ml @ 1 mls/min Q4H PRN IV 08/29/17 17:15 09/28/17 17:14 08/29/17 17:22 1 MLS/MIN Losartan Potassium (coZAAR TAB) 50 mg DAILY PO 08/31/17 08:00 09/30/17 07:59 Physical Exam Vital Signs (Past 24 Hrs): Date Time Temp Pulse Resp B/P (MAP) Pulse Ox O2 Delivery O2 Flow Rate FiO2 08/30/17 14:02 36.8 88 16 134/77 (96) 95 Room Air 08/30/17 10:46 36.6 83 20 138/74 (95) 96 Room Air 08/30/17 09:19 Room Air 08/30/17 08:00 96 Room Air 08/30/17 02:44 37.0 85 16 172/85 (114) 96 Room Air 08/30/17 00:02 Room Air 08/29/17 23:56 88 190/88 (122) 08/29/17 23:30 36.5 86 20 188/81 (116) 93 Room Air 08/29/17 19:45 Room Air 08/29/17 16:30 36.6 90 20 170/79 (109) 93 Room Air 08/29/17 16:00 Room Air Physical Exam: Constitutional: appearance nourished, thin pale Ears, Nose, Mouth and Throat: mucous membranes moist, no injection and skin normal, eyes normal Cardiovascular: normal S-1 and S-2 and regular rate and rhythm Respiratory: course breath sounds Musculoskeletal: no peripheral edema and good distal pulses Skin: no stigmata of neurocutaneous disease noted and normal and intact Eyes: extraocular muscles intact (EOMI) and pupils equal, round and reactive to light (PERRL) NEUROLOGIC EXAMINATION: Mental status: Alert and interactive, states she knows where she is but can't state location Oriented to person Speech no asphasia noted Cranial Nerves smile eye brow raise symmetric Reflexes: Deep tendon reflexes were symmetrical and graded 2/5. Plantar responses were flexor. Sensory: to light and cool touch Coordination: finger to nose no bi pass Gait/Stance: Posture lay in bed moves all extremities Strength: biceps triceps hand air traffic coordinator 5/5 bilaterally hip flex patellar flex ext plantar flex ext 5/5 bilaterally Laboratory Results Past 24 Hours: Test 08/30/17 06:18 Iron Level 113 mcg/dl (35-150) Total Iron Binding Capacity 324 mcg/dl (250-450) Transferrin 254 mg/dl (200-360) Transferrin % Saturation 32 % (15-50) Ferritin 686.0 ng/ml (8.0-388.0) Vitamin B12 Level 384 pg/mL (211-911) Folate 10.53 ng/mL (>5.38) Imaging CT chest- Enlarging nodular airspace opacity within the left upper lobe measuring 52 x 32 x 45 mm. As stated above, this is more elongated than is typical for neoplasm. In addition, this lesion was present in 2006 although it has increased in size. Pulmonary consultation is recommended in follow-up, as an unusual slowly growing neoplasm cannot be excluded. Interval development of mild mediastinal lymphadenopathy Interval development of left axillary lymphadenopathy Mottled bony trabecular pattern CT head-. No acute intracranial abnormality. Hypodensity within the left parietal lobe. 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 abdominal US- . No cholelithiasis or biliary ductal dilatation. Heterogeneity of liver parenchyma could suggest underlying steatosis or fibrosis. Impression 82 year old with increased dementia issues, lung nodules Plan 1. lung nodule - CT chest slightly bigger than compared to 2006 imaging 2. pulmonary consult- no intervention at this time 3. folate and B12 WNL 4. correct any electrolyte abnormalities 5. MRI brain ordered not sure if she will cooperate with imaging 6. PT/OT for discharge needs 7. nutritional consult for suggestions- re: weight loss 8. care mgt for assistance in placement further recommendations once MRI completed outpatient follow up for dementia management- neurology Dr Gael Gay, or Emelia Childress PAC 2-3 weeks after discharge I have seen and discussed above patient with Dr Gael Gay, neurology I have seen this woman and discussed the case with Emelia Gonzalez She is pleasantly confused no with no focal signs but is at the nurses station to keep her observed and safe needs one on one eventually imaging with mri and the lung nodule is likely non cancerous and the issue of brain mets is likely academic at most and suspect frankly that this is truly and Alzheimer pattern rather than vascular and if there are vascular elements they are playing a minor role will try to get imaging with mri but suspect level of cooperation will be low and wouln not rx with aricept or namenda at this advanced point as benefit would be minimal and side effects would override any will see back tomorrow Gael Gay MD
--- NOTE | 2017-08-30 18:42 | Progress Note ---
Internal Med Progress Note Date of Service: Aug 30, 2017. Provider Documentation: SUBJECTIVE: sitting in wheel chair afebrile daughter and son in room denies any pain no nausea pleasant family looking for placement OBJECTIVE: Vital Signs-as noted below Exam: General-alert and awake. Not in distress ENT-normal hearing Neck-no neck masses Lungs-cta b/l no wheezing or crackles Heart-s1 and s2 heard regular no murmurs Abdomen-soft bowel sounds present non tender no distension Extremities-no edema no erythema Neuro-alert and awake and oriented x 2 moves extremities Lab data as noted below. 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 on non contrast CT chest Present on a CT scan in 2005 but increased in size now seen by pulmonary and no further workup planned as it is very slow growing and with current patient status LEUKOCYTOSIS: Empirically started on ceftriaxone and azithromycin to cover pulm source will f/u cx ARF presented with cr 1.2 resolved will f/u labs HTN: on losartan Anemia and thrombocytopenia iron studies, vitamin b12 and folate levels unremarkable stool for Hemoccult needs f/u DVT PROPHYLAXIS scds DISPOSITION monitor in medical floor social service for d/c planning plan for placement with locked dementia unit Vital Signs: Date Time Temp Pulse Resp B/P (MAP) Pulse Ox O2 Delivery O2 Flow Rate FiO2 08/31/17 00:05 Room Air 08/30/17 23:52 36.8 98 20 187/110 (135) 94 Room Air 08/30/17 19:32 36.5 97 19 178/102 (127) 95 Room Air 08/30/17 16:00 95 Room Air 08/30/17 14:02 36.8 88 16 134/77 (96) 95 Room Air 08/30/17 10:46 36.6 83 20 138/74 (95) 96 Room Air 08/30/17 09:19 Room Air 08/30/17 08:00 96 Room Air Lab Results: Results Past 24 Hours Test 08/31/17 05:18 08/31/17 07:23 Range/Units White Blood Count 12.43 4.8-10.8 K/uL Red Blood Count 3.15 4.2-5.4 M/uL Hemoglobin 9.6 12.0-16.0 g/dL Hematocrit 29.7 37-47 % Mean Corpuscular Volume 94.3 80-100 fL Mean Corpuscular Hemoglobin 30.5 25-34 pg Mean Corpuscular Hemoglobin Concent 32.3 32-36 g/dl Platelet Count 71 130-400 K/uL Mean Platelet Volume 12.5 7.4-10.4 fL Neutrophils (%) (Auto) 53.9 % Lymphocytes (%) (Auto) 24.2 % Monocytes (%) (Auto) 9.8 % Eosinophils (%) (Auto) 6.8 % Basophils (%) (Auto) 0.6 % Neutrophils # (Auto) 6.70 1.4-6.5 K/uL Lymphocytes # (Auto) 3.01 1.2-3.4 K/uL Monocytes # (Auto) 1.22 0.11-0.59 K/uL Eosinophils # (Auto) 0.84 0-0.5 K/uL Basophils # (Auto) 0.08 0-0.2 K/uL RDW Standard Deviation 53.0 36.4-46.3 fL RDW Coefficient of Variation 15.8 11.5-14.5 % Immature Granulocyte % (Auto) 4.7 % Immature Granulocyte # (Auto) 0.58 0.00-0.02 K/uL Nucleated RBC Absolute Count (auto) 0.26 0-0 K/uL Nucleated Red Blood Cells % 2.1 % Red Blood Cell Morphology Unremarkable Sodium Level 140 136-145 mmol/L Potassium Level 3.6 3.5-5.1 mmol/L Chloride Level 109 98-107 mmol/L Carbon Dioxide Level 21 21-32 mmol/L Anion Gap 10.0 3-11 mmol/L Blood Urea Nitrogen 25 7-18 mg/dl Creatinine 1.09 0.60-1.20 mg/dl Est Creatinine Clear Calc Drug Dose 33.8 ml/min Estimated GFR () 54.4 Estimated GFR (Non- 46.9 BUN/Creatinine Ratio 23.3 10-20 Random Glucose 85 70-99 mg/dl Calcium Level 9.3 8.5-10.1 mg/dl Magnesium Level 2.1 1.8-2.4 mg/dl
[2017-08-31] MEDS: HALOPERIDOL LACTATE 5 MG/ML 1 ML VIAL IM PRN ×3 (00:14→21:03)
[2017-08-31] MEDS: CEFTRIAXONE SOD INJ 1 GM in DEXTROSE 5% ADD-VANTAGE 50ML 50 ML IV SCH (01:41)
[2017-08-31 06:04] LABS: HEMATOCRIT 29.7 % (37-47); HEMOGLOBIN 9.6 g/dL (12.0-16.0); MEAN CELL VOLUME 94.3 fL (80-100); MEAN CORPUSCULAR HEMOGLOBIN 30.5 pg (25-34); MEAN CORPUSCULAR HGB CONC 32.3 g/dl (32-36); MEAN PLATELET VOLUME 12.5 fL (7.4-10.4); NUCLEATED RED BLOOD CELL ABS 0.26 K/uL (0-0); PLATELET COUNT 71 K/uL (130-400); RED CELL DISTRIBUTION WIDTH CV 15.8 % (11.5-14.5); WHITE BLOOD COUNT 12.43 K/uL (4.8-10.8)
[2017-08-31 06:16] LABS: BASO % 0.6 %; BASO ABS # 0.08 K/uL (0-0.2); CALCIUM 9.3 mg/dl (8.5-10.1); CREATININE 1.09 mg/dl (0.60-1.20); EOS % 6.8 %; EOS ABS # 0.84 K/uL (0-0.5); IG# 0.58 K/uL (0.00-0.02); LYMPH % 24.2 %; LYMPH ABS # 3.01 K/uL (1.2-3.4); MONO % 9.8 %; MONO ABS # 1.22 K/uL (0.11-0.59); NEUT % 53.9 %; POTASSIUM 3.6 mmol/L (3.5-5.1)
--- NOTE | 2017-08-31 06:34 | DIAGNOSTIC IMAGING REPORT ---
BRAIN WITHOUT CONTRAST HISTORY: Mental status change confusion. progressively worsening. lung mass TECHNIQUE: Multiplanar multisequence MRI of the brain was performed without the use of contrast. COMPARISON STUDY: None. FINDINGS: Limited exam due to considerable patient motion. No evidence for acute ischemic process. Findings of generalized cerebral atrophy. Considerable chronic small vessel change. The ventricular system is midline. IMPRESSION: Limited study due to severe patient motion. Generalized cerebral atrophy and chronic small vessel change The above report was generated using voice recognition software. It may contain grammatical, syntax or spelling errors. Electronically signed by: Raymond Reyes M.D. 08/31/2017 6:33 AM Dictated Date/Time: 08/31/2017 6:32 AM
[2017-08-31] MEDS: LOSARTAN POTASSIUM 50 MG TAB PO SCH (07:42)
[2017-08-31] MEDS: AZITHROMYCIN 250 MG TAB PO SCH (07:42)
[2017-08-31 08:00] VITALS: O2SAT 96
[2017-08-31 08:01] LABS: ALBUMIN 3.2 gm/dl (3.4-5.0); ALKALINE PHOSPHATASE 718 U/L (45-117); ALT/SGPT 19 U/L (12-78); AST/SGOT 89 U/L (15-37); TOTAL PROTEIN 6.6 gm/dl (6.4-8.2)
[2017-08-31 10:30] VITALS: BP 133/79; PULSE 93; TEMP 37.1; O2SAT 96
[2017-08-31 12:11] VITALS: BP 140/74; PULSE 88; TEMP 36.6; O2SAT 93
--- NOTE | 2017-08-31 13:29 | Neurology Progress Notes ---
Neurology Progress Note Date of Service Aug 31, 2017. Savanah Ferguson is an 82 yo female who was brought from home by her daughter for complaints that the patient needs placement and 24 hour supervision. She was lost and wandering her neighborhood and has become increasingly confused, neglectful, and forgetful since last summer. She has been steady decline since last summer when her of 60+ years . She was having grief issues and lost weight, became angry, withdrawn, and forgetful. She lives with her grandson who works during the day and the patient is home alone. Her daughter lives in [place] and her brother in [place]. She has been neglecting herself, her 2 dogs, and her plants which is very unlike her. She also has a great deal of difficulty recalling short term memories. She had an out patient work up and diagnoses with dementia but the last month she is no longer safe living at home alone. Her daughter is here from [place] and has been looking for placement but the past few days she felt she needed to be hospitalized due to her MS change. She had a fall earlier this month but was not brought to the hospital at the time. She has been administering her own medications and has been taking them incorrectly. Today her son and daughter are in the room and looking at placement for their mother. She is lying in bed and sleeping but wakes easily with voice command. Denies any pain or any other issues. Objective Date Time Temp Pulse Resp B/P (MAP) Pulse Ox O2 Delivery O2 Flow Rate FiO2 08/31/17 12:11 36.6 88 14 140/74 (96) 93 Room Air 08/31/17 10:30 37.1 93 14 133/79 (97) 96 Room Air 08/31/17 10:30 96 Room Air 08/31/17 08:00 96 Room Air 08/31/17 00:05 Room Air 08/30/17 23:52 36.8 98 20 187/110 (135) 94 Room Air 08/30/17 19:32 36.5 97 19 178/102 (127) 95 Room Air 08/30/17 16:00 95 Room Air 08/30/17 14:02 36.8 88 16 134/77 (96) 95 Room Air Last 24 Hours Test 08/31/17 05:18 White Blood Count 12.43 K/uL Red Blood Count 3.15 M/uL Hemoglobin 9.6 g/dL Hematocrit 29.7 % Mean Corpuscular Volume 94.3 fL Mean Corpuscular Hemoglobin 30.5 pg Mean Corpuscular Hemoglobin Concent 32.3 g/dl Platelet Count 71 K/uL Mean Platelet Volume 12.5 fL Neutrophils (%) (Auto) 53.9 % Lymphocytes (%) (Auto) 24.2 % Monocytes (%) (Auto) 9.8 % Eosinophils (%) (Auto) 6.8 % Basophils (%) (Auto) 0.6 % Neutrophils # (Auto) 6.70 K/uL Lymphocytes # (Auto) 3.01 K/uL Monocytes # (Auto) 1.22 K/uL Eosinophils # (Auto) 0.84 K/uL Basophils # (Auto) 0.08 K/uL RDW Standard Deviation 53.0 fL RDW Coefficient of Variation 15.8 % Immature Granulocyte % (Auto) 4.7 % Immature Granulocyte # (Auto) 0.58 K/uL Nucleated RBC Absolute Count (auto) 0.26 K/uL Nucleated Red Blood Cells % 2.1 % Red Blood Cell Morphology Unremarkable Sodium Level 140 mmol/L Potassium Level 3.6 mmol/L Chloride Level 109 mmol/L Carbon Dioxide Level 21 mmol/L Anion Gap 10.0 mmol/L Blood Urea Nitrogen 25 mg/dl Creatinine 1.09 mg/dl Est Creatinine Clear Calc Drug Dose 33.8 ml/min Estimated GFR () 54.4 Estimated GFR (Non- 46.9 BUN/Creatinine Ratio 23.3 Random Glucose 85 mg/dl Calcium Level 9.3 mg/dl Magnesium Level 2.1 mg/dl Total Bilirubin 0.5 mg/dl Direct Bilirubin < 0.1 mg/dl Aspartate Amino Transf (AST/SGOT) 89 U/L Alanine Aminotransferase (ALT/SGPT) 19 U/L Alkaline Phosphatase 718 U/L Total Protein 6.6 gm/dl Albumin 3.2 gm/dl Imaging: MRI brain combo- Limited study due to severe patient motion. Generalized cerebral atrophy and chronic small vessel change Exam: Gen: alert NAD lungs: CTA CV RRR moves all ext with command and spontaneously neuro: asked who was in the room states it is her "brother" and "sister" does not know where she lives or she is in a hospital very pleasant Current Inpatient Medications Medications (Trade) Dose Ordered Sig/Jagdeep Route Start Time Stop Time Status Last Admin Dose Admin Acetaminophen (Tylenol Tab) 650 mg Q4H PRN PO 08/28/17 22:45 09/27/17 22:44 Polyethylene (Miralax Powder Packet) 17 gm DAILY PRN PO 08/28/17 22:45 09/27/17 22:44 Ondansetron HCl (Zofran Inj) 4 mg Q6H PRN IV 08/28/17 22:45 09/27/17 22:44 Ceftriaxone Sodium 1 gm/ Dextrose 50 ml @ 100 mls/hr Q24H IV 08/29/17 02:00 09/05/17 01:59 08/31/17 01:41 100 MLS/HR Azithromycin (Zithromax Tab) 500 mg QAM PO 08/29/17 08:00 09/05/17 08:59 08/31/17 07:42 500 MG Haloperidol Lactate (Haldol Inj) 2 mg Q4 PRN IM 08/29/17 17:00 09/28/17 16:59 08/31/17 00:14 2 MG Lorazepam (Ativan Inj) 0.5 mg Q4H PRN IV 08/29/17 17:00 09/28/17 16:59 08/30/17 03:15 0.5 MG Lorazepam 0.5 mg/ Syringe 1 ml @ 1 mls/min Q4H PRN IV 08/29/17 17:15 09/28/17 17:14 08/30/17 22:42 1 MLS/MIN Losartan Potassium (coZAAR TAB) 50 mg DAILY PO 08/31/17 08:00 09/30/17 07:59 08/31/17 07:42 50 MG Impression 82 year old with increased dementia issues, lung nodules Plan 1. lung nodule - CT chest slightly bigger than compared to 2006 imaging 2. pulmonary consult- no intervention at this time 3. folate and B12 WNL 4. correct any electrolyte abnormalities 5. MRI brain poor quality of imaging but enough to evaluate for stroke or lesions 6. PT/OT for discharge needs 7. nutritional consult for suggestions- re: weight loss 8. care mgt for assistance in placement 9. discussed Alzheimer medications with son and daughter. Most of the medications have minimal effects on this stage of the disease. The side effects may out way the benefit. would be glad to reassess her in our office once she is settled at facility. Important to have her safe and happy in her surroundings. 10. she may benefit from antidepressant due to the recent loss of her . 11. would add aspirin to her medications if there is no contra indication will sign off for now call with questions concerns. outpatient follow up for dementia management- neurology Dr Gael Gay, or Emelia Childress PAC 2-3 weeks after discharge I have discussed above patient with Dr Gael Gay, neurology Long discussion with children History suggests that she may well have had a significant dementia for years covered by her who of pancreatic ca in the spring after which she declined rapidly to the current level of significant clinical dementia with imaging shoiwn atrophy and some vascular events but with preserved motor skills save for some gait issues Again am not in favor of anticholinesterase agents or namenda until she is placed and in a stable environment for [facility] but might consider an antidepressant if her pcp wants to offer it on an outpatient At this point we will sign off and would be willing to see her after four to six week period of acclimatization at an ecf or pcf Gael Gay MD
[2017-08-31 15:15] VITALS: BP 136/76; PULSE 88; TEMP 36.6; O2SAT 96
--- NOTE | 2017-08-31 17:21 | Progress Note ---
Internal Med Progress Note Date of Service: Aug 31, 2017. Provider Documentation: SUBJECTIVE: says wants to go home as per nursing staff did not eat breakfast but ate good lunch afebrile denies any pain denies nausea upset that she is not going home OBJECTIVE: Vital Signs-as noted below Exam: General-alert and awake. Not in distress ENT-normal hearing Neck-no neck masses Lungs-cta b/l no wheezing or crackles Heart-s1 and s2 heard regular no murmurs Abdomen-soft bowel sounds present non tender no distension Extremities-no edema no erythema Neuro-alert and awake and oriented x 2 moves extremities Lab data as noted below. 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 will complete 5 day course ARF presented with cr 1.2 resolved will f/u labs HTN: on losartan Anemia and thrombocytopenia iron studies, vitamin b12 and folate levels unremarkable stool for Hemoccult needs f/u DVT PROPHYLAXIS scds DISPOSITION monitor in medical floor social service for d/c planning plan for placement with locked dementia unit Vital Signs: Date Time Temp Pulse Resp B/P (MAP) Pulse Ox O2 Delivery O2 Flow Rate FiO2 08/31/17 16:00 Room Air 08/31/17 15:15 36.6 88 16 136/76 (96) 96 Room Air 08/31/17 12:11 36.6 88 14 140/74 (96) 93 Room Air 08/31/17 10:30 37.1 93 14 133/79 (97) 96 Room Air 08/31/17 10:30 96 Room Air 08/31/17 08:00 96 Room Air 08/31/17 00:05 Room Air 08/30/17 23:52 36.8 98 20 187/110 (135) 94 Room Air 08/30/17 19:32 36.5 97 19 178/102 (127) 95 Room Air Lab Results: Results Past 24 Hours Test 08/31/17 05:18 Range/Units White Blood Count 12.43 4.8-10.8 K/uL Red Blood Count 3.15 4.2-5.4 M/uL Hemoglobin 9.6 12.0-16.0 g/dL Hematocrit 29.7 37-47 % Mean Corpuscular Volume 94.3 80-100 fL Mean Corpuscular Hemoglobin 30.5 25-34 pg Mean Corpuscular Hemoglobin Concent 32.3 32-36 g/dl Platelet Count 71 130-400 K/uL Mean Platelet Volume 12.5 7.4-10.4 fL Neutrophils (%) (Auto) 53.9 % Lymphocytes (%) (Auto) 24.2 % Monocytes (%) (Auto) 9.8 % Eosinophils (%) (Auto) 6.8 % Basophils (%) (Auto) 0.6 % Neutrophils # (Auto) 6.70 1.4-6.5 K/uL Lymphocytes # (Auto) 3.01 1.2-3.4 K/uL Monocytes # (Auto) 1.22 0.11-0.59 K/uL Eosinophils # (Auto) 0.84 0-0.5 K/uL Basophils # (Auto) 0.08 0-0.2 K/uL RDW Standard Deviation 53.0 36.4-46.3 fL RDW Coefficient of Variation 15.8 11.5-14.5 % Immature Granulocyte % (Auto) 4.7 % Immature Granulocyte # (Auto) 0.58 0.00-0.02 K/uL Nucleated RBC Absolute Count (auto) 0.26 0-0 K/uL Nucleated Red Blood Cells % 2.1 % Red Blood Cell Morphology Unremarkable Sodium Level 140 136-145 mmol/L Potassium Level 3.6 3.5-5.1 mmol/L Chloride Level 109 98-107 mmol/L Carbon Dioxide Level 21 21-32 mmol/L Anion Gap 10.0 3-11 mmol/L Blood Urea Nitrogen 25 7-18 mg/dl Creatinine 1.09 0.60-1.20 mg/dl Est Creatinine Clear Calc Drug Dose 33.8 ml/min Estimated GFR () 54.4 Estimated GFR (Non- 46.9 BUN/Creatinine Ratio 23.3 10-20 Random Glucose 85 70-99 mg/dl Calcium Level 9.3 8.5-10.1 mg/dl Magnesium Level 2.1 1.8-2.4 mg/dl Total Bilirubin 0.5 0.2-1 mg/dl Direct Bilirubin < 0.1 0-0.2 mg/dl Aspartate Amino Transf (AST/SGOT) 89 15-37 U/L Alanine Aminotransferase (ALT/SGPT) 19 12-78 U/L Alkaline Phosphatase 718 45-117 U/L Total Protein 6.6 6.4-8.2 gm/dl Albumin 3.2 3.4-5.0 gm/dl
[2017-08-31] MEDS: LORAZEPAM 2 MG/ML 1 ML VIAL IV PRN (18:03)
[2017-08-31 20:00] VITALS: BP 174/80; PULSE 106; TEMP 36.6; O2SAT 95
[2017-08-31] MEDS ORDERED: GADAVIST IV PRN (22:45)
--- NOTE | 2017-08-31 23:05 | DIAGNOSTIC IMAGING REPORT ---
BRAIN COMBO CLINICAL HISTORY: 82 years-old Female presenting with confusion, worsening weakness, fall. TECHNIQUE: Multisequence, multiplanar MR imaging of the brain was performed before and after the administration of intravenous contrast. IV contrast: 5.5 mL of Gadavist. COMPARISON: Noncontrast MR brain from 08/30/2017. FINDINGS: Limited examination secondary to motion artifact degradation. This limits diagnostic sensitivity the exam. Proportional ventricular and sulcal prominence, likely age-related parenchymal volume loss. Numerous small enhancing foci in the tello-white junction, some of the larger lesions with surrounding T2/FLAIR hyperintensity. Additionally, periventricular white matter T2/FLAIR hyperintensity, likely chronic small vessel ischemic change. No mass effect or midline shift. No restricted diffusion to suggest acute ischemia. No hemorrhage. No extra-axial fluid collection. T2 skull base flow voids preserved. Bone marrow signal intensity within the calvarium within normal limits. Bilateral augustine lenses are absent. IMPRESSION: 1. Numerous enhancing lesions at the tello-white junction characteristic of metastatic disease, some of the larger lesions with surrounding edema. Correlate for underlying primary malignancy. The report will be called/faxed according to standard departmental protocol. Electronically signed by: Jacob Soto M.D. 08/31/2017 11:04 PM Dictated Date/Time: 08/31/2017 10:55 PM
[2017-09-01] MEDS: LORAZEPAM 2 MG/ML 1 ML VIAL IV PRN (02:21)
[2017-09-01] MEDS: CEFTRIAXONE SOD INJ 1 GM in DEXTROSE 5% ADD-VANTAGE 50ML 50 ML IV SCH (02:21)
[2017-09-01] MEDS ORDERED: DEXAMETHASONE INJ 10 MG in SYRINGE 0 ML IV ONE (07:20)
[2017-09-01 07:45] VITALS: BP 176/78; PULSE 94; TEMP 36; O2SAT 96
[2017-09-01] MEDS: LOSARTAN POTASSIUM 50 MG TAB PO SCH (07:55)
[2017-09-01] MEDS: AZITHROMYCIN 250 MG TAB PO SCH (07:55)
[2017-09-01] MEDS: ASPIRIN 81 MG ECTAB PO SCH (07:56)
[2017-09-01 08:00] VITALS: O2SAT 96
[2017-09-01 08:31] LABS: NUCLEATED RED BLOOD CELL ABS 0.19 K/uL (0-0)
[2017-09-01 08:38] LABS: HEMATOCRIT 32.4 % (37-47); MEAN CELL VOLUME 93.1 fL (80-100); MEAN CORPUSCULAR HEMOGLOBIN 31.6 pg (25-34); RED CELL DISTRIBUTION WIDTH CV 16.2 % (11.5-14.5); RED CELL DISTRIBUTION WIDTH SD 53.6 fL (36.4-46.3); WHITE BLOOD COUNT 13.27 K/uL (4.8-10.8)
[2017-09-01 08:40] LABS: PLATELET COUNT 79 K/uL (130-400)
[2017-09-01 09:00] LABS: BASO % 0.8 %; BASO ABS # 0.11 K/uL (0-0.2); EOS % 5.7 %; EOS ABS # 0.76 K/uL (0-0.5); IG# 0.64 K/uL (0.00-0.02); LYMPH % 16.4 %; LYMPH ABS # 2.17 K/uL (1.2-3.4); NEUT % 63.3 %; NEUT ABS # 8.39 K/uL (1.4-6.5)
[2017-09-01 09:04] LABS: CALCIUM 9.9 mg/dl (8.5-10.1); CREATININE 1.07 mg/dl (0.60-1.20); POTASSIUM 3.5 mmol/L (3.5-5.1)
[2017-09-01 09:55] VITALS: O2SAT 96
[2017-09-01 10:19] VITALS: BP 163/92
[2017-09-01] MEDS ORDERED: DEXAMETHASONE INJ 4 MG in SYRINGE 0 ML IV SCH (12:00)
[2017-09-01 15:06] VITALS: PULSE 100; TEMP 36.6; O2SAT 93
[2017-09-01] MEDS: HALOPERIDOL LACTATE 5 MG/ML 1 ML VIAL IM PRN (15:49)
--- NOTE | 2017-09-01 16:04 | Radiation Oncology Consult ---
Radiation Oncology Consult Date / Reason Sep 01, 2017. Physicians Radiation Oncologist: Dr. Jhon Davies Other Providers: Dr. Ryan Martell Diagnosis (1) Brain metastases (2) Lung mass History of Present Illness I am seeing Ms. Fox in consultation at the request of Dr. Leal The patient was seen at bedside. ECOG PS: 4 Ms. Fox is a 82-year-old female with dementia who was recently noted to be having more issues including requiring care 24 hours a day. She was recently found to be lost and wandering. She was brought to the emergency room due to failure to thrive and concern for worsening of her overall medical condition. 08/28/2017 --- chest x-ray --- IMPRESSION: 1. Mild diffuse interstitial thickening which has progressed. 2. Increase in size in the nonspecific 2.5 x 1.2 cm left upper lobe nodular density. This is better appreciated on the same day chest CT. 08/28/2017 --- CT chest --- IMPRESSION: 1. Enlarging nodular airspace opacity within the left upper lobe measuring 52 x 32 x 45 mm. As stated above, this is more elongated than is typical for neoplasm. In addition, this lesion was present in 2006 although it has increased in size. Pulmonary consultation is recommended in follow-up, as an unusual slowly growing neoplasm cannot be excluded. 2. Interval development of mild mediastinal lymphadenopathy 3. Interval development of left axillary lymphadenopathy 4. Mottled bony trabecular pattern 08/28/2017 --- CT head without contrast ---Impression: 1. No acute intracranial abnormality. 2. Hypodensity within the left parietal lobe. 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 08/28/2017 --- MRI of brain without contrast --- IMPRESSION: Limited study due to severe patient motion. Generalized cerebral atrophy and chronic small vessel change 08/29/2017 --- pulmonary consult by Dr. Sachin martell --- Dr. martell discuss potentially biopsying the mass in the lung to confirm the diagnosis however after discussing the advantages/disadvantages of the procedure and obtaining a diagnosis with the daughter the general consensus was to hold off on the biopsy. 08/31/2017 --- MRI of brain with contrast --- IMPRESSION: 1. Numerous enhancing lesions at the tello-white junction characteristic of metastatic disease, some of the larger lesions with surrounding edema. Correlate for underlying primary malignancy. The report will be called/faxed according to standard departmental protocol. We have been asked to evaluate the patient for consideration of radiation therapy. The patient was seen at bedside however she was uncooperative and unable to obtain any history from. Past History Past Medical/Surgical History: Alzheimer's, Hypertension Social History Smoking Status: Never Smoker Hx Tobacco Use In Past Year?: No Do You Dip or Chew Tobacco: No Hx Alcohol Use: No Hx Substance Use : No Allergies Coded Allergies: Statins (Verified Adverse Reaction, Unknown, severe muscle pain, 12/21/15) Home Medications Scheduled Aspirin (Aspir-81), 1 TAB PO DAILY Losartan Potassium (Cozaar), 50 MG PO DAILY Scheduled PRN Acetaminophen (Tylenol Arthritis Ext Rel), 650 MG PO Q12 PRN for Pain Hydroxyzine Hcl (Hydroxyzine Hcl), 5 ML PO TID PRN for Anxiety Miscellaneous Medications [Note] Review of Systems Ear/Hearing: Ear Side: Bilateral Hearing Ability: Normal Hearing Aid: None Edema: Present?: No Location Body Site Modifier: Bilateral Type: Non-pitting Degree: Trace Physical Exam ECOG Performance Status: 4 Height: 5 (Feet) 4.00 (Inches) 162.6 (Centimeters) 1.6256 (Meters) Weight: 120 (Pounds) 13.0 (Ounces) 54.800 (Kilograms) 67192.000 (Grams) Date Time Temp Pulse Resp B/P (MAP) Pulse Ox O2 Delivery O2 Flow Rate FiO2 09/01/17 15:06 36.6 100 18 93 09/01/17 10:19 163/92 (115) 09/01/17 09:55 96 Room Air 09/01/17 08:00 96 Room Air 09/01/17 07:45 36.0 94 14 176/78 (110) 96 Room Air 09/01/17 00:10 Room Air 08/31/17 20:00 36.6 106 16 174/80 (111) 95 Room Air 08/31/17 16:00 Room Air Neurologic/Psych: + disoriented Additional Exam Comments: Examination was limited due to the fact that the patient was unable to follow commands. Pain Management Patient Reports Pain: No Side: Right Pain Location: None Patient Preferred Pain Scale: Faces (0 - 10) Initial Pain Intensity: 0.0 Level of Consciousness: Spontaneously Alert Pain Medication Comment: No s/s of pain or distress noted Pain Management Plan Patient has no pain and requires no pain management plan. Laboratory Laboratory Results: not applicable Pathology Pathology Results: not applicable Imaging Imaging Studies: were reviewed, and pertinent findings noted in HPI Assessment & Recommendations Assessment: Ms. Fox is an 82-year-old female with severe dementia who was recently admitted to the hospital due to failure to thrive at home. The patient was apparently reported to be confused and required 24-hour care at home. The patient was brought to the emergency room and was admitted due to her overall condition. She did have a CT of the chest which did reveal an enlarging mass in the lung concerning for pulmonary malignancy which has not been biopsied. Additionally, she did have an MRI of the brain with and without contrast which did reveal multiple enhancing lesions concerning for metastatic disease. Currently, the patient is on Decadron 4 mg every 6 hours. The patient was seen by pulmonary and they did discuss a potential biopsy however the family refuses given the patient's overall performance status. We have been asked to evaluate the patient for consideration of palliative whole brain radiation therapy. Recommendation/Plan: I had an in-depth discussion with the patient's daughter and son. We did discuss the role of radiation therapy and we did discuss the role of obtaining a tissue diagnosis. We discussed the advantages and disadvantages of both obtaining a tissue diagnosis to confirm cancer as well as considering palliative whole brain radiation therapy or stereotactic radiosurgery. I did explain to the patient's family that I am concerned about the role of radiation therapy given the patient's history of dementia and her age. After a long discussion, the patient's family still feels that the best option is for hospice and comfort care. I am in agreement with this plan and I think this is a reasonable option for the patient given her poor performance status. The patient's family will work with primary hospitalist team to coordinate disposition for the patient after she is discharged from the hospital. I have given her our department's contact information if she has any further questions or concerns. Total Time In Consultation I spent 30 minutes examining and counseling the patient. I spent 15 minutes completing this note. JERMAINE
--- NOTE | 2017-09-01 17:01 | Neurology Progress Notes ---
Neurology Progress Note Date of Service Sep 01, 2017. Savanah Ferguson is an 82 yo female who was brought from home by her daughter for complaints that the patient needs placement and 24 hour supervision. She was lost and wandering her neighborhood and has become increasingly confused, neglectful, and forgetful since last summer. She has been steady decline since last summer when her of 60+ years . She was having grief issues and lost weight, became angry, withdrawn, and forgetful. She lives with her grandson who works during the day and the patient is home alone. Her daughter lives in [place] and her brother in [place]. She has been neglecting herself, her 2 dogs, and her plants which is very unlike her. She also has a great deal of difficulty recalling short term memories. She had an out patient work up and diagnoses with dementia but the last month she is no longer safe living at home alone. Her daughter is here from [place] and has been looking for placement but the past few days she felt she needed to be hospitalized due to her MS change. She had a fall earlier this month but was not brought to the hospital at the time. She has been administering her own medications and has been taking them incorrectly. She is lying in bed currently and was just given Haldol. The nurses are currently transferring her to another room. Objective Date Time Temp Pulse Resp B/P (MAP) Pulse Ox O2 Delivery O2 Flow Rate FiO2 09/01/17 16:00 Room Air 09/01/17 15:06 36.6 100 18 93 09/01/17 10:19 163/92 (115) 09/01/17 09:55 96 Room Air 09/01/17 08:00 96 Room Air 09/01/17 07:45 36.0 94 14 176/78 (110) 96 Room Air 09/01/17 00:10 Room Air 08/31/17 20:00 36.6 106 16 174/80 (111) 95 Room Air Last 24 Hours Test 09/01/17 08:16 White Blood Count 13.27 K/uL Red Blood Count 3.48 M/uL Hemoglobin 11.0 g/dL Hematocrit 32.4 % Mean Corpuscular Volume 93.1 fL Mean Corpuscular Hemoglobin 31.6 pg Mean Corpuscular Hemoglobin Concent 34.0 g/dl Platelet Count 79 K/uL Neutrophils (%) (Auto) 63.3 % Lymphocytes (%) (Auto) 16.4 % Monocytes (%) (Auto) 9.0 % Eosinophils (%) (Auto) 5.7 % Basophils (%) (Auto) 0.8 % Neutrophils # (Auto) 8.39 K/uL Lymphocytes # (Auto) 2.17 K/uL Monocytes # (Auto) 1.20 K/uL Eosinophils # (Auto) 0.76 K/uL Basophils # (Auto) 0.11 K/uL RDW Standard Deviation 53.6 fL RDW Coefficient of Variation 16.2 % Immature Granulocyte % (Auto) 4.8 % Immature Granulocyte # (Auto) 0.64 K/uL Nucleated RBC Absolute Count (auto) 0.19 K/uL Nucleated Red Blood Cells % 1.4 % Large Platelets 1+ Sodium Level 141 mmol/L Potassium Level 3.5 mmol/L Chloride Level 108 mmol/L Carbon Dioxide Level 22 mmol/L Anion Gap 11.0 mmol/L Blood Urea Nitrogen 25 mg/dl Creatinine 1.07 mg/dl Est Creatinine Clear Calc Drug Dose 34.4 ml/min Estimated GFR () 55.6 Estimated GFR (Non- 48.0 BUN/Creatinine Ratio 23.4 Random Glucose 98 mg/dl Calcium Level 9.9 mg/dl Magnesium Level 2.3 mg/dl Imaging: MRI with brain -Numerous enhancing lesions at the tello-white junction characteristic of metastatic disease, some of the larger lesions with surrounding edema. Correlate for underlying primary malignancy. Exam: Gen: resting comfortably in bed NAD normal respiratory effort moving all ext spontaneously Current Inpatient Medications Medications (Trade) Dose Ordered Sig/Jagdeep Route Start Time Stop Time Status Last Admin Dose Admin Acetaminophen (Tylenol Tab) 650 mg Q4H PRN PO 08/28/17 22:45 09/27/17 22:44 Polyethylene (Miralax Powder Packet) 17 gm DAILY PRN PO 08/28/17 22:45 09/27/17 22:44 Ondansetron HCl (Zofran Inj) 4 mg Q6H PRN IV 08/28/17 22:45 09/27/17 22:44 Ceftriaxone Sodium 1 gm/ Dextrose 50 ml @ 100 mls/hr Q24H IV 08/29/17 02:00 09/05/17 01:59 09/01/17 02:21 100 MLS/HR Azithromycin (Zithromax Tab) 500 mg QAM PO 08/29/17 08:00 09/05/17 08:59 09/01/17 07:55 500 MG Haloperidol Lactate (Haldol Inj) 2 mg Q4 PRN IM 08/29/17 17:00 09/28/17 16:59 09/01/17 15:49 2 MG Lorazepam (Ativan Inj) 0.5 mg Q4H PRN IV 08/29/17 17:00 09/28/17 16:59 09/01/17 02:21 0.5 MG Lorazepam 0.5 mg/ Syringe 1 ml @ 1 mls/min Q4H PRN IV 08/29/17 17:15 09/28/17 17:14 08/30/17 22:42 1 MLS/MIN Losartan Potassium (coZAAR TAB) 50 mg DAILY PO 08/31/17 08:00 09/30/17 07:59 09/01/17 07:55 50 MG Aspirin (Ecotrin Tab) 81 mg QAM PO 09/01/17 08:00 10/01/17 07:59 09/01/17 07:56 81 MG Gadobutrol (Gadavist) 5.5 mmol UD PRN IV 08/31/17 22:45 09/04/17 22:44 Impression 82 year old with increased dementia issues, lung nodules Plan 1. lung nodule - CT chest slightly bigger than compared to 2006 imaging 2. pulmonary consult- no intervention at this time 3. folate and B12 WNL 4. correct any electrolyte abnormalities 5. MRI brain poor quality of imaging but enough to evaluate for stroke or lesions- contrast MRI revealed multiple lesions 6. PT/OT for discharge needs 7. nutritional consult for suggestions- re: weight loss 8. care mgt for assistance in placement 9. discussed Alzheimer medications with son and daughter. Most of the medications have minimal effects on this stage of the disease. The side effects may out way the benefit. would be glad to reassess her in our office once she is settled at facility. Important to have her safe and happy in her surroundings. 10. she may benefit from antidepressant due to the recent loss of her . 11. would add aspirin to her medications if there is no contra indication 12. d/c steroids as will increase encephalopathy and no edema on imaging I have discussed above patient with Dr Emelia Cote, neurology Pt seen briefly after having received Haldol. Family not at bedside. I reviewed radiation onc note regarding families desire for palliative care. MRI reviewed, multiple small enhancing cortical masses without mass effect cw mets. There is no edema or mass effect, therefore have dced decadron. Pt is likely asx or minimally symptomatic. I will try to see pt tomorrow to discuss with family. Prognosis is poor. Would not treat dementia. Will sign off. Pt does not need neurologic follow-up, CATY Cote MD
--- NOTE | 2017-09-01 17:29 | Progress Note ---
Internal Med Progress Note Date of Service: Sep 01, 2017. Provider Documentation: SUBJECTIVE: confused says no to everything afebrile hemodynamics stable OBJECTIVE: Vital Signs-as noted below Exam: General-alert and awake. confused Not in distress ENT-normal hearing Neck-no neck masses Lungs-cta b/l no wheezing or crackles Heart-s1 and s2 heard regular no murmurs Abdomen-soft bowel sounds present non tender no distension Extremities-no edema no erythema Neuro-alert and awake confused moves extremities Lab data as noted below. ASSESSMENT & PLAN: COGNITIVE DECLINE: Dementia with behavioral disturbance seems has undergoing workup as an outpatient and likely has dementia, but symptoms getting worse in the past month without a clear cause ct head unremarkable MRI head brain mets with edema was started on iv Decadron but stopped by neurology because of questionable edema on mri and it can cause encephalopathy Brain mets primary lung? seen by radiation oncology-d/w family and they seems to leaning towards comfort care heme/onco consulted will d/w family and place palliative care consult 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 on non contrast CT chest Present on a CT scan in 2005 but increased in size now seen by pulmonary and no further workup planned as it is very slow growing and with current patient status LEUKOCYTOSIS: Empirically started on ceftriaxone and azithromycin to cover pulm source will f/u cx. will complete 5 day course ARF presented with cr 1.2 resolved will f/u labs HTN: on losartan Anemia and thrombocytopenia iron studies, vitamin b12 and folate levels unremarkable stool for Hemoccult needs f/u DVT PROPHYLAXIS scds DISPOSITION monitor in medical floor social service for d/c planning plan for placement -possible [facility] hospice Vital Signs: Date Time Temp Pulse Resp B/P (MAP) Pulse Ox O2 Delivery O2 Flow Rate FiO2 09/01/17 16:00 Room Air 09/01/17 15:06 36.6 100 18 93 09/01/17 10:19 163/92 (115) 09/01/17 09:55 96 Room Air 09/01/17 08:00 96 Room Air 09/01/17 07:45 36.0 94 14 176/78 (110) 96 Room Air 09/01/17 00:10 Room Air 08/31/17 20:00 36.6 106 16 174/80 (111) 95 Room Air Lab Results: Results Past 24 Hours Test 09/01/17 08:16 Range/Units White Blood Count 13.27 4.8-10.8 K/uL Red Blood Count 3.48 4.2-5.4 M/uL Hemoglobin 11.0 12.0-16.0 g/dL Hematocrit 32.4 37-47 % Mean Corpuscular Volume 93.1 80-100 fL Mean Corpuscular Hemoglobin 31.6 25-34 pg Mean Corpuscular Hemoglobin Concent 34.0 32-36 g/dl Platelet Count 79 130-400 K/uL Neutrophils (%) (Auto) 63.3 % Lymphocytes (%) (Auto) 16.4 % Monocytes (%) (Auto) 9.0 % Eosinophils (%) (Auto) 5.7 % Basophils (%) (Auto) 0.8 % Neutrophils # (Auto) 8.39 1.4-6.5 K/uL Lymphocytes # (Auto) 2.17 1.2-3.4 K/uL Monocytes # (Auto) 1.20 0.11-0.59 K/uL Eosinophils # (Auto) 0.76 0-0.5 K/uL Basophils # (Auto) 0.11 0-0.2 K/uL RDW Standard Deviation 53.6 36.4-46.3 fL RDW Coefficient of Variation 16.2 11.5-14.5 % Immature Granulocyte % (Auto) 4.8 % Immature Granulocyte # (Auto) 0.64 0.00-0.02 K/uL Nucleated RBC Absolute Count (auto) 0.19 0-0 K/uL Nucleated Red Blood Cells % 1.4 % Large Platelets 1+ Sodium Level 141 136-145 mmol/L Potassium Level 3.5 3.5-5.1 mmol/L Chloride Level 108 98-107 mmol/L Carbon Dioxide Level 22 21-32 mmol/L Anion Gap 11.0 3-11 mmol/L Blood Urea Nitrogen 25 7-18 mg/dl Creatinine 1.07 0.60-1.20 mg/dl Est Creatinine Clear Calc Drug Dose 34.4 ml/min Estimated GFR () 55.6 Estimated GFR (Non- 48.0 BUN/Creatinine Ratio 23.4 10-20 Random Glucose 98 70-99 mg/dl Calcium Level 9.9 8.5-10.1 mg/dl Magnesium Level 2.3 1.8-2.4 mg/dl
[2017-09-01 19:29] VITALS: BP 191/84; PULSE 107; O2SAT 94
--- NOTE | 2017-09-01 19:54 | Medical Consult ---
Consultation Date of Consultation: Sep 01, 2017. Attending Physician: Ryan Leal MD Reason for Consultation: abnormal MRI History of Present Illness 82 year old female with history of Alzheimers dementia and hypertension admitted with mental status change. She had MRI brain which showed multiple enhancing lesions and edema compatible with metastases and was started on dexamethasone 4mg IV every 6hrs She had a CT chest which showed an enlarging nodular airspace opacity within the left upper lobe measuring 52 x 32 x 45 mm which is this is more elongated than is typical for neoplasm and this lesion was present in 2005,though it has increased in size. Pulmonary consultation was recommended in follow-up, as an unusual slowly growing neoplasm cannot be excluded.There was also mild mediastinal lymphadenopathy and Interval development of left axillary lymphadenopathy and Mottled bony trabecular pattern History is limited due to patient's condition I called and spoke to her daughter Kizzy. Her daughter states that they have noticed a gradual change in her behavior since patient lost her in January 2017. She has also had weight loss and appeared more withdrawn In the past 2 months they noticed that she had stopped feeding her dog and her grandson has been feeding him and that patient has been restless. Her daughter states that she complained of headache and she noticed the progressive changes in her behavior and took her to the hospital for further evaluation. ECOG PS 4 currently Past Medical/Surgical History PMH: dementia, HTN PSH:cataract Medical Problems: (1) Abnormal chest xray Status: Acute (2) Diverticulitis Status: Acute (3) Lung mass Status: Acute Family History Hypertension FH: from pancreatic cancer in January 2017 father from brain tumor at 69 brothers: had lung disorder - were smokers and coal miners Social History Smoking Status: Never Smoker Smokeless Tobacco Use: No Alcohol Use: none Drug Use: none Marital Status: Occupation Status: retired Allergies Coded Allergies: Statins (Verified Adverse Reaction, Unknown, severe muscle pain, 12/21/15) Current Inpatient Medications Current Inpatient Medications Medications (Trade) Dose Ordered Sig/Jagdeep Route Start Time Stop Time Status Last Admin Dose Admin Acetaminophen (Tylenol Tab) 650 mg Q4H PRN PO 08/28/17 22:45 09/27/17 22:44 Polyethylene (Miralax Powder Packet) 17 gm DAILY PRN PO 08/28/17 22:45 09/27/17 22:44 Ondansetron HCl (Zofran Inj) 4 mg Q6H PRN IV 08/28/17 22:45 09/27/17 22:44 Ceftriaxone Sodium 1 gm/ Dextrose 50 ml @ 100 mls/hr Q24H IV 08/29/17 02:00 09/05/17 01:59 09/01/17 02:21 100 MLS/HR Azithromycin (Zithromax Tab) 500 mg QAM PO 08/29/17 08:00 09/05/17 08:59 09/01/17 07:55 500 MG Haloperidol Lactate (Haldol Inj) 2 mg Q4 PRN IM 08/29/17 17:00 09/28/17 16:59 09/01/17 15:49 2 MG Lorazepam (Ativan Inj) 0.5 mg Q4H PRN IV 08/29/17 17:00 09/28/17 16:59 09/01/17 02:21 0.5 MG Lorazepam 0.5 mg/ Syringe 1 ml @ 1 mls/min Q4H PRN IV 08/29/17 17:15 09/28/17 17:14 08/30/17 22:42 1 MLS/MIN Losartan Potassium (coZAAR TAB) 50 mg DAILY PO 08/31/17 08:00 09/30/17 07:59 09/01/17 07:55 50 MG Aspirin (Ecotrin Tab) 81 mg QAM PO 09/01/17 08:00 10/01/17 07:59 09/01/17 07:56 81 MG Gadobutrol (Gadavist) 5.5 mmol UD PRN IV 08/31/17 22:45 09/04/17 22:44 Review of Systems unable to obtain due to patient condition. Physical Exam Date Time Temp Pulse Resp B/P (MAP) Pulse Ox O2 Delivery O2 Flow Rate FiO2 09/01/17 16:00 Room Air 09/01/17 15:06 36.6 100 18 93 09/01/17 10:19 163/92 (115) 09/01/17 09:55 96 Room Air 09/01/17 08:00 96 Room Air 09/01/17 07:45 36.0 94 14 176/78 (110) 96 Room Air 09/01/17 00:10 Room Air 08/31/17 20:00 36.6 106 16 174/80 (111) 95 Room Air Limited as patient not following commands and intermittently agitated. General Appearance: + thin, + pertinent finding (chronically ill appearing female in no acute distress) Head: normocephalic, atraumatic Respiratory/Chest: lungs clear, no respiratory distress Cardiovascular: regular rate, rhythm, no edema Abdomen/GI: non tender, soft Extremities/Musculoskelatal: no calf tenderness, no pedal edema, non-tender Neurologic/Psych: alert, + pertinent finding (awake and alert, oriented x 1, said her first name, not oriented to place or time, does nor follow commands) Skin: warm/dry Laboratory Results Last 24 Hours Test 09/01/17 08:16 White Blood Count 13.27 K/uL Red Blood Count 3.48 M/uL Hemoglobin 11.0 g/dL Hematocrit 32.4 % Mean Corpuscular Volume 93.1 fL Mean Corpuscular Hemoglobin 31.6 pg Mean Corpuscular Hemoglobin Concent 34.0 g/dl Platelet Count 79 K/uL Neutrophils (%) (Auto) 63.3 % Lymphocytes (%) (Auto) 16.4 % Monocytes (%) (Auto) 9.0 % Eosinophils (%) (Auto) 5.7 % Basophils (%) (Auto) 0.8 % Neutrophils # (Auto) 8.39 K/uL Lymphocytes # (Auto) 2.17 K/uL Monocytes # (Auto) 1.20 K/uL Eosinophils # (Auto) 0.76 K/uL Basophils # (Auto) 0.11 K/uL RDW Standard Deviation 53.6 fL RDW Coefficient of Variation 16.2 % Immature Granulocyte % (Auto) 4.8 % Immature Granulocyte # (Auto) 0.64 K/uL Nucleated RBC Absolute Count (auto) 0.19 K/uL Nucleated Red Blood Cells % 1.4 % Large Platelets 1+ Sodium Level 141 mmol/L Potassium Level 3.5 mmol/L Chloride Level 108 mmol/L Carbon Dioxide Level 22 mmol/L Anion Gap 11.0 mmol/L Blood Urea Nitrogen 25 mg/dl Creatinine 1.07 mg/dl Est Creatinine Clear Calc Drug Dose 34.4 ml/min Estimated GFR () 55.6 Estimated GFR (Non- 48.0 BUN/Creatinine Ratio 23.4 Random Glucose 98 mg/dl Calcium Level 9.9 mg/dl Magnesium Level 2.3 mg/dl MRI brain reviewed 1. Numerous enhancing lesions at the tello-white junction characteristic of metastatic disease, some of the larger lesions with surrounding edema. Correlate for underlying primary malignancy. Assessment & Plan 82 year old female admitted with mental status change found to have abnormal CT scan chest with enlarging nodular opacity and abnormal brain MRI with multiple enhancing lesions with edema compatible with metastases She has not had a tissue diagnosis. She was evaluated by pulmonary but she has not had biopsy and I spoke to her daughter and she stated that they have decided to not pursue diagnosis I spoke to Dr Leal earlier and recommended radiation oncology consultation for palliative RT and consider CT scan abdomen pelvis and bone scan for further evaluation if family agreeable. Dr Davies has seen her - see his note for recommendation. Her daughter state that after discussion with Dr Davies they have decided to not pursue this given her overall poor physical and mental status at this time I discussed that we can do further evaluation with CT scan abd/pel and bone scan to evaluate for primary tumor but her daughter Kizzy state that they do not want to pursue further imaging workup at this time or a biopsy. Patient's performance status and she is confused, unable to verbalize any symptoms though she is alert. Given her current poor PFS ECOG 4, and her daughter states that they are not interested in pursuing further imaging workup or a biopsy to obtain diagnosis or palliative brain radiation, so recommend consider palliative care consultation to discuss goals of care and for supportive care for patient. We do not have any tissue diagnosis and she is not a good candidate for chemotherapy due to patient unable to verbalize any symptoms and current performance status is poor. If family agree you can obtain US of the breast and axilla and mammogram to evaluate for primary tumor given the axillary adenopathy on her CT scan. Thank you for this consult. Will sign off. . Please call us as needed
[2017-09-01] MEDS ORDERED: LOSARTAN POTASSIUM 50 MG TAB PO ONE (20:50)
[2017-09-02 00:01] VITALS: BP 177/83; PULSE 99
[2017-09-02] MEDS: LORAZEPAM 2 MG/ML 1 ML VIAL IV PRN ×2 (02:07→13:39)
[2017-09-02] MEDS: CEFTRIAXONE SOD INJ 1 GM in DEXTROSE 5% ADD-VANTAGE 50ML 50 ML IV SCH (02:10)
[2017-09-02 06:21] LABS: MEAN CORPUSCULAR HGB CONC 34.5 g/dl (32-36); NUCLEATED RED BLOOD CELL ABS 0.27 K/uL (0-0)
[2017-09-02 06:36] LABS: HEMATOCRIT 30.4 % (37-47); HEMOGLOBIN 10.5 g/dL (12.0-16.0); MEAN CORPUSCULAR HEMOGLOBIN 32.1 pg (25-34); RED CELL DISTRIBUTION WIDTH CV 16.1 % (11.5-14.5); RED CELL DISTRIBUTION WIDTH SD 53.1 fL (36.4-46.3)
[2017-09-02 06:54] LABS: BASO % 0.5 %; BASO ABS # 0.07 K/uL (0-0.2); EOS % 0.4 %; EOS ABS # 0.06 K/uL (0-0.5); IG# 0.36 K/uL (0.00-0.02); LYMPH % 11.5 %; LYMPH ABS # 1.62 K/uL (1.2-3.4); MONO % 8.1 %; MONO ABS # 1.14 K/uL (0.11-0.59); NEUT % 76.9 %; NEUT ABS # 10.85 K/uL (1.4-6.5); PLATELET COUNT 61 K/uL (130-400)
[2017-09-02 07:05] LABS: CREATININE 1.12 mg/dl (0.60-1.20); POTASSIUM 3.5 mmol/L (3.5-5.1)
[2017-09-02] MEDS: AZITHROMYCIN 250 MG TAB PO SCH (07:54)
[2017-09-02] MEDS: ASPIRIN 81 MG ECTAB PO SCH (07:54)
[2017-09-02] MEDS: LOSARTAN POTASSIUM 50 MG TAB PO SCH (07:55)
[2017-09-02 08:12] VITALS: BP_SYST 191; BP_SYST 197; BP_DIAS 103; BP_DIAS 83; PULSE 103; TEMP 36.5; O2SAT 95
[2017-09-02 10:58] VITALS: BP 171/87
[2017-09-02 11:31] VITALS: BP 162/84; PULSE 96; TEMP 36.4; O2SAT 95
[2017-09-02 15:13] VITALS: BP 182/87; PULSE 103; TEMP 36; O2SAT 96
--- NOTE | 2017-09-02 16:40 | Progress Note ---
Internal Med Progress Note Date of Service: Sep 02, 2017. Provider Documentation: SUBJECTIVE: confused oriented to name trying to eat denies pain denies nausea or sob afebrile OBJECTIVE: Vital Signs-as noted below Exam: General-alert and awake. confused Not in distress ENT-normal hearing Neck-no neck masses Lungs-cta b/l no wheezing or crackles Heart-s1 and s2 heard regular no murmurs Abdomen-soft bowel sounds present non tender no distension Extremities-no edema no erythema Neuro-alert and awake confused moves extremities Lab data as noted below. ASSESSMENT & PLAN: COGNITIVE DECLINE: Dementia with behavioral disturbance seems has undergoing workup as an outpatient and likely has dementia, but symptoms getting worse in the past month without a clear cause ct head unremarkable MRI head brain mets with edema was started on iv Decadron but stopped by neurology because of questionable edema on mri and it can cause encephalopathy oriented to name only Brain mets primary lung? seen by radiation oncology-d/w family and they seems to leaning towards comfort care heme/onco consulted family seems not want more testing will d/w family and place palliative care consult 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 on non contrast CT chest Present on a CT scan in 2005 but increased in size now seen by pulmonary and no further workup planned as it is very slow growing and with current patient status LEUKOCYTOSIS: Empirically started on ceftriaxone and azithromycin to cover pulm source will f/u cx. will complete 5 day course ARF presented with cr 1.2 resolved will f/u labs HTN: on losartan Anemia and thrombocytopenia iron studies, vitamin b12 and folate levels unremarkable stool for Hemoccult needs f/u DVT PROPHYLAXIS scds DISPOSITION monitor in medical floor social service for d/c planning plan for placement -possible [place] Vital Signs: Date Time Temp Pulse Resp B/P (MAP) Pulse Ox O2 Delivery O2 Flow Rate FiO2 09/02/17 15:16 Room Air 09/02/17 15:13 36.0 103 18 182/87 (118) 96 Room Air 09/02/17 11:31 36.4 96 20 162/84 (110) 95 09/02/17 10:58 171/87 (115) 09/02/17 08:12 36.5 103 18 191/83 (119) 95 197/103 (134) 09/02/17 08:00 Room Air 09/02/17 00:50 Room Air 09/02/17 00:01 99 177/83 (114) 09/01/17 19:29 107 20 191/84 (119) 94 Room Air Lab Results: Results Past 24 Hours Test 09/02/17 05:55 Range/Units White Blood Count 14.10 4.8-10.8 K/uL Red Blood Count 3.27 4.2-5.4 M/uL Hemoglobin 10.5 12.0-16.0 g/dL Hematocrit 30.4 37-47 % Mean Corpuscular Volume 93.0 80-100 fL Mean Corpuscular Hemoglobin 32.1 25-34 pg Mean Corpuscular Hemoglobin Concent 34.5 32-36 g/dl Platelet Count 61 130-400 K/uL Neutrophils (%) (Auto) 76.9 % Lymphocytes (%) (Auto) 11.5 % Monocytes (%) (Auto) 8.1 % Eosinophils (%) (Auto) 0.4 % Basophils (%) (Auto) 0.5 % Neutrophils # (Auto) 10.85 1.4-6.5 K/uL Lymphocytes # (Auto) 1.62 1.2-3.4 K/uL Monocytes # (Auto) 1.14 0.11-0.59 K/uL Eosinophils # (Auto) 0.06 0-0.5 K/uL Basophils # (Auto) 0.07 0-0.2 K/uL RDW Standard Deviation 53.1 36.4-46.3 fL RDW Coefficient of Variation 16.1 11.5-14.5 % Immature Granulocyte % (Auto) 2.6 % Immature Granulocyte # (Auto) 0.36 0.00-0.02 K/uL Nucleated RBC Absolute Count (auto) 0.27 0-0 K/uL Nucleated Red Blood Cells % 1.9 % Platelet Estimate DECREASED Sodium Level 143 136-145 mmol/L Potassium Level 3.5 3.5-5.1 mmol/L Chloride Level 111 98-107 mmol/L Carbon Dioxide Level 18 21-32 mmol/L Anion Gap 14.0 3-11 mmol/L Blood Urea Nitrogen 36 7-18 mg/dl Creatinine 1.12 0.60-1.20 mg/dl Est Creatinine Clear Calc Drug Dose 32.9 ml/min Estimated GFR () 52.6 Estimated GFR (Non- 45.4 BUN/Creatinine Ratio 31.9 10-20 Random Glucose 127 70-99 mg/dl Calcium Level 9.0 8.5-10.1 mg/dl Magnesium Level 2.4 1.8-2.4 mg/dl
[2017-09-02 20:25] VITALS: BP 177/82; PULSE 102; TEMP 36.5; O2SAT 96
[2017-09-03 00:07] VITALS: BP 144/88; PULSE 103; TEMP 36.6; O2SAT 94
[2017-09-03] MEDS: CEFTRIAXONE SOD INJ 1 GM in DEXTROSE 5% ADD-VANTAGE 50ML 50 ML IV SCH (02:15)
[2017-09-03] MEDS: LORAZEPAM INJ 0.5 MG in SYRINGE 0.75 ML IV PRN ×2 (04:27→23:41)
[2017-09-03 10:54] VITALS: BP 169/82; PULSE 93; TEMP 36.5; O2SAT 96
[2017-09-03] MEDS: ASPIRIN 81 MG ECTAB PO SCH (10:54)
[2017-09-03] MEDS: LOSARTAN POTASSIUM 50 MG TAB PO SCH (10:54)
[2017-09-03] MEDS: AZITHROMYCIN 250 MG TAB PO SCH (10:54)
[2017-09-03 13:20] VITALS: BP 145/87; PULSE 99
[2017-09-03 15:31] VITALS: BP 169/82; PULSE 105; TEMP 36.4; O2SAT 92
--- NOTE | 2017-09-03 16:49 | Progress Note ---
Internal Med Progress Note Date of Service: Sep 03, 2017. Provider Documentation: SUBJECTIVE: confused oriented to name lying in the bed and staring not talking much' afebrile OBJECTIVE: Vital Signs-as noted below Exam: General-alert and awake. confused Not in distress ENT-normal hearing Neck-no neck masses Lungs-cta b/l no wheezing or crackles Heart-s1 and s2 heard regular no murmurs Abdomen-soft bowel sounds present non tender no distension Extremities-no edema no erythema Neuro-alert and awake confused moves extremities Lab data as noted below. ASSESSMENT & PLAN: COGNITIVE DECLINE: Dementia with behavioral disturbance seems has undergoing workup as an outpatient and likely has dementia, but symptoms getting worse in the past month without a clear cause ct head unremarkable MRI head brain mets with edema was started on iv Decadron but stopped by neurology because of questionable edema on mri and it can cause encephalopathy oriented to name only plan for palliative consult-[place] hospice? Brain mets primary lung? seen by radiation oncology-d/w family and they seems to leaning towards comfort care heme/onco consulted family seems not want more testing will d/w family and place palliative care consult in am 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 on non contrast CT chest Present on a CT scan in 2005 but increased in size now seen by pulmonary and no further workup planned as it is very slow growing and with current patient status LEUKOCYTOSIS: Empirically started on ceftriaxone and azithromycin to cover pulm source will f/u cx. will complete 5 day course. will stop abx ARF presented with cr 1.2 resolved will f/u labs HTN: on losartan Anemia and thrombocytopenia iron studies, vitamin b12 and folate levels unremarkable stool for Hemoccult needs f/u DVT PROPHYLAXIS scds DISPOSITION monitor in medical floor social service for d/c planning plan for placement -possible [place] hospice Vital Signs: Date Time Temp Pulse Resp B/P (MAP) Pulse Ox O2 Delivery O2 Flow Rate FiO2 09/03/17 16:17 Room Air 09/03/17 15:31 36.4 105 18 169/82 (111) 92 09/03/17 13:20 99 22 145/87 (106) 09/03/17 10:54 36.5 93 16 169/82 (111) 96 Room Air 09/03/17 10:00 Room Air 09/03/17 00:30 Room Air 09/03/17 00:07 36.6 103 18 144/88 (106) 94 Room Air 09/02/17 20:25 36.5 102 20 177/82 (113) 96 Room Air 09/02/17 19:50 Room Air
[2017-09-03] MEDS: LORAZEPAM 2 MG/ML 1 ML VIAL IV PRN (18:32)
[2017-09-03 20:00] VITALS: BP 148/75; PULSE 98; TEMP 36.7; O2SAT 94
[2017-09-04 04:00] VITALS: BP 144/78; PULSE 91; TEMP 36.6; O2SAT 95
[2017-09-04] MEDS: HALOPERIDOL LACTATE 5 MG/ML 1 ML VIAL IM PRN (04:33)
[2017-09-04 07:59] VITALS: BP 144/84; PULSE 101; TEMP 36.4; O2SAT 95
[2017-09-04] MEDS: LOSARTAN POTASSIUM 50 MG TAB PO SCH (08:51)
[2017-09-04] MEDS: ASPIRIN 81 MG ECTAB PO SCH (08:51)
[2017-09-04 11:08] VITALS: BP 121/83; PULSE 96; TEMP 36.4; O2SAT 97
--- NOTE | 2017-09-04 12:03 | Palliative Care Consultation ---
Consultation Date of Consultation: Sep 04, 2017. Requesting Physician: Dr. Leal Attending Physician: Dr. Leal Reason for Consultation: Goals of care History of Present Illness This 82 year old female patient with PMH cognitive impairment, gastric ulcer, htn, CKD stage III and recent weight loss and decline, presented to the hospital a week ago with altered mental status and lung abnormality on CT scan. Patient's of cancer back in January 2017 and apparently has been steadily declining since then. She had outpatient workup for dementia, but she seemed to be deteriorating quickly. 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 Pulmonary was consulted but patient's family decided not to undergo biopsy. Heme/onc and rad/onc were both also consulted, but patient's family is more interested in discussing palliative/comfort care and does not believe they want to go to through with any further testing or treatment. Palliative care is consulted. I met with the patient, her daughter Kizzy Fox, and son Sachin Fox in room 419. Patient is awake and alert but very disoriented. She was able to walk with two assists to the bathroom to have BM. Son and daughter stepped out of room to discuss with me. They state that patient has been rapidly declining and it would be her wish to just be made comfortable at this point. We discussed hospice care-- family is familiar as they just had hospice for their father. They would like patient to go to [facility] with hospice care. We discussed and filled out POLST form. See plan below. Past Medical/Surgical History Medical History: Cognitive impairment/dementia Gastric ulcer Htn CKD stage III Social History Smoking Status: Never Smoker History of Alcohol Use: No Drug Use: none Marital Status: Housing Status: lives with family Occupation Status: retired Review of Systems unable to obtain full ROS due to altered mental status Allergies Coded Allergies: Statins (Verified Adverse Reaction, Unknown, severe muscle pain, 12/21/15) Medications Current Inpatient Medications Medications (Trade) Dose Ordered Sig/Jagdeep Route Start Time Stop Time Status Last Admin Dose Admin Acetaminophen (Tylenol Tab) 650 mg Q4H PRN PO 08/28/17 22:45 09/27/17 22:44 Polyethylene (Miralax Powder Packet) 17 gm DAILY PRN PO 08/28/17 22:45 09/27/17 22:44 Ondansetron HCl (Zofran Inj) 4 mg Q6H PRN IV 08/28/17 22:45 09/27/17 22:44 Haloperidol Lactate (Haldol Inj) 2 mg Q4 PRN IM 08/29/17 17:00 09/28/17 16:59 09/04/17 04:33 2 MG Lorazepam (Ativan Inj) 0.5 mg Q4H PRN IV 08/29/17 17:00 09/28/17 16:59 09/03/17 18:32 0.5 MG Lorazepam 0.5 mg/ Syringe 1 ml @ 1 mls/min Q4H PRN IV 08/29/17 17:15 09/28/17 17:14 09/03/17 23:41 1 MLS/MIN Aspirin (Ecotrin Tab) 81 mg QAM PO 09/01/17 08:00 10/01/17 07:59 09/04/17 08:51 81 MG Gadobutrol (Gadavist) 5.5 mmol UD PRN IV 08/31/17 22:45 09/04/17 22:44 Losartan Potassium (coZAAR TAB) 100 mg DAILY PO 09/02/17 08:00 09/30/17 07:59 09/04/17 08:51 100 MG Physical Exam Date Time Temp Pulse Resp B/P (MAP) Pulse Ox O2 Delivery O2 Flow Rate FiO2 09/04/17 11:08 36.4 96 15 121/83 (96) 97 Room Air 09/04/17 07:59 36.4 101 17 144/84 (104) 95 Room Air 09/04/17 04:00 36.6 91 18 144/78 (100) 95 Room Air 09/04/17 00:40 Room Air 09/03/17 20:00 36.7 98 20 148/75 (99) 94 Room Air 09/03/17 19:30 Room Air 09/03/17 16:17 Room Air 09/03/17 15:31 36.4 105 18 169/82 (111) 92 09/03/17 13:20 99 22 145/87 (106) General Appearance: no apparent distress, + thin ENT: hearing grossly normal Neck: supple, no JVD Respiratory: no respiratory distress, no accessory muscle use, + pertinent finding (room air) Cardiovascular: regular rate, rhythm, no edema Abdomen: normal bowel sounds, non tender, soft Neurologic/Psychiatric: alert, + disoriented Assessment & Plan Palliative Performance Scale: 40 % Problem list: Altered mental status- dementia vs. 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 Leal as well as top case assembler. -Discussed code status, patient will now be DNR per the son and daughter. Daughter, Kizzy Fox, is POA. -Goals of care strictly for comfort and end of life care. They do not want to pursue any further diagnostic testing or treatment for the malignancy. -Patient will go to SNF ([facility]) on hospice care. Case management following. -POLST form completed as follows: DNR, comfort measures only, abx with comfort as the goal, no artificial hydration/nutrition. Signed by patient's daughter/ POA Kizzy Fox in the presence of patient's son, Sachin Fox. -Recommend discontinuing Haldol-considered a restraint at SNF per top case assembler. Increase lorazepam to 1mg PO/SL Q4h PRN agitation. Thank you kindly for this consult. Please contact me with any further palliative care needs. Total time spent 70 minutes with >50% of time spent with patient and family at bedside counseling and discussing goals of care.
[2017-09-04] MEDS ORDERED: LORAZEPAM 1 MG TAB PO PRN (14:45)
[2017-09-04 16:00] VITALS: O2SAT 97
[2017-09-04 16:20] VITALS: BP 167/77; PULSE 99; TEMP 36.5; O2SAT 94
--- NOTE | 2017-09-04 16:49 | Progress Note ---
Internal Med Progress Note Date of Service: Sep 04, 2017. Provider Documentation: SUBJECTIVE: alert and awake but confused denies any pain somewhat restless says she ate lunch afebrile OBJECTIVE: Vital Signs-as noted below Exam: General-alert and awake. confused . somewhat restless ENT-normal hearing Neck-no neck masses Lungs-cta b/l no wheezing or crackles Heart-s1 and s2 heard regular no murmurs Abdomen-soft bowel sounds present non tender no distension Extremities-no edema no erythema Neuro-alert and awake confused moves extremities Lab data as noted below. ASSESSMENT & PLAN: COGNITIVE DECLINE: Dementia with behavioral disturbance seems has undergoing workup as an outpatient and likely has dementia, but symptoms getting worse in the past month without a clear cause ct head unremarkable MRI head brain mets with edema was started on iv Decadron but stopped by neurology because of questionable edema on mri and it can cause encephalopathy oriented to name only palliative consulted appreciate inputs Plan for [place] hospice Brain mets primary lung? seen by radiation oncology-d/w family and they seems to leaning towards comfort care heme/onco consulted family seems not want more testing will d/w family and placed palliative care consult plan for [place] hospice 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 on non contrast CT chest Present on a CT scan in 2005 but increased in size now seen by pulmonary and no further workup planned as it is very slow growing and with current patient status LEUKOCYTOSIS: Empirically started on ceftriaxone and azithromycin to cover pulm source will f/u cx. will complete 5 day course. will stop abx ARF presented with cr 1.2 resolved will f/u labs HTN: on losartan Anemia and thrombocytopenia iron studies, vitamin b12 and folate levels unremarkable stool for Hemoccult needs f/u DVT PROPHYLAXIS scds DISPOSITION monitor in medical floor social service for d/c planning plan for placement -[place] in [place] Vital Signs: Date Time Temp Pulse Resp B/P (MAP) Pulse Ox O2 Delivery O2 Flow Rate FiO2 09/04/17 16:20 36.5 99 18 167/77 (107) 94 Room Air 09/04/17 11:29 Room Air 09/04/17 11:08 36.4 96 15 121/83 (96) 97 Room Air 09/04/17 07:59 36.4 101 17 144/84 (104) 95 Room Air 09/04/17 04:00 36.6 91 18 144/78 (100) 95 Room Air 09/04/17 00:40 Room Air 09/03/17 20:00 36.7 98 20 148/75 (99) 94 Room Air 09/03/17 19:30 Room Air
[2017-09-04 19:52] VITALS: BP 104/64; PULSE 99; TEMP 36.7; O2SAT 92
[2017-09-04] MEDS: LORAZEPAM 2 MG/ML 1 ML VIAL IV PRN (22:38)
[2017-09-05 04:31] VITALS: BP 172/79; PULSE 96; TEMP 36.6; O2SAT 92
[2017-09-05 07:10] VITALS: BP 158/82; PULSE 105; TEMP 36; O2SAT 92
[2017-09-05] MEDS: LORAZEPAM 2 MG/ML 1 ML VIAL IV PRN (07:15)
[2017-09-05] MEDS ORDERED: OXYC10SO PO (10:27)
[2017-09-05] MEDS ORDERED: LORA-741 PO (10:27)
--- NOTE | 2017-09-05 10:29 | Discharge Instructions ---
Discharge Instructions Date of Service Sep 05, 2017. Admission Reason for Admission: Ams, Lung Abnormality Discharge Discharge Diagnosis / Problem: AMS, BRAIN MASS, DEMNTIA WITH BEHVAIORAL DISTURBANCE, LUNG MASS Discharge Goals Goal(s): Decrease discomfort, Improve function Activity Recommendations Activity Level: Assistance Required . Additional Information Patient informed of condition: No (CONFUSED) Advance Directives: Yes DNR: Yes Level of Care: Other ([facility]) Communicable Disease: No Prognosis: Other (HOSPICE CARE) Philippe Catheter: No Instructions / Follow-Up Instructions / Follow-Up FOLLOWUP NEEDED Current Hospital Diet Patient's current hospital diet: AHA Diet (Heart Healthy) Discharge Diet Recommended Diet: Regular Diet, AHA Diet (Heart Healthy) Pending Studies Studies pending at discharge: no Physician Orders On Transfer Special Precautions: FALL AND ASPIRATION PRECAUTIONS Vital Signs: EVERY 8HRS Medical Emergencies . Who to Call and When: Medical Emergencies: If at any time you feel your situation is an emergency, please call 911 immediately. . Non-Emergent Contact Non-Emergency issues call your: Primary Care Provider . . "Provider Documentation" section prepared by Ryan Leal. . Core Measure Problem Core Measures: None
--- NOTE | 2017-09-05 10:31 | Progress Note ---
Internal Med Progress Note Date of Service: Sep 05, 2017. Provider Documentation: SUBJECTIVE: alert and awake but confused DAUGHTER I ROOM AWAITING DISCHARGE TO [facility] WITH HOSPICE CARE OBJECTIVE: Vital Signs-as noted below Exam: General-alert and awake. confused . somewhat restless ENT-normal hearing Neck-no neck masses Lungs-cta b/l no wheezing or crackles Heart-s1 and s2 heard regular no murmurs Abdomen-soft bowel sounds present non tender no distension Extremities-no edema no erythema Neuro-alert and awake confused moves extremities Lab data as noted below. ASSESSMENT & PLAN: COGNITIVE DECLINE: Dementia with behavioral disturbance seems has undergoing workup as an outpatient and likely has dementia, but symptoms getting worse in the past month without a clear cause ct head unremarkable MRI head brain mets with edema was started on iv Decadron but stopped by neurology because of questionable edema on mri and it can cause encephalopathy oriented to name only palliative consulted appreciate inputs Plan for [place] hospice today Brain mets primary lung? seen by radiation oncology-d/w family and they seems to leaning towards comfort care heme/onco consulted family seems not want more testing will d/w family and placed palliative care consult plan for [place] hospice today 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 on non contrast CT chest Present on a CT scan in 2005 but increased in size now seen by pulmonary and no further workup planned as it is very slow growing and with current patient status LEUKOCYTOSIS: Empirically started on ceftriaxone and azithromycin to cover pulm source will f/u cx. will complete 5 day course. will stop abx ARF presented with cr 1.2 resolved will f/u labs HTN: on losartan Anemia and thrombocytopenia iron studies, vitamin b12 and folate levels unremarkable stool for Hemoccult hospice care DVT PROPHYLAXIS scds DISPOSITION discharge to [place] hospice Vital Signs: Date Time Temp Pulse Resp B/P (MAP) Pulse Ox O2 Delivery O2 Flow Rate FiO2 09/05/17 08:41 Room Air 09/05/17 07:10 36.0 105 18 158/82 (107) 92 Room Air 09/05/17 04:31 36.6 96 20 172/79 (110) 92 Room Air 09/05/17 00:00 Room Air 09/04/17 19:52 36.7 99 18 104/64 (77) 92 Room Air 09/04/17 16:20 36.5 99 18 167/77 (107) 94 Room Air 09/04/17 16:00 97 Room Air 09/04/17 11:29 Room Air 09/04/17 11:08 36.4 96 15 121/83 (96) 97 Room Air
--- NOTE | 2017-09-05 10:35 | Discharge Summary ---
Discharge Summary Date of Service Sep 05, 2017. 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 Enlarging nodular airspace opacity within the left upper lobe measuring 52 x 32 x 45 mm. As stated above, this is more elongated than is typical for neoplasm. In addition, this lesion was present in 2005 although it has increased in size. Pulmonary consultation is recommended in follow-up, as an unusual slowly growing neoplasm cannot be excluded. 2. Interval development of mild mediastinal lymphadenopathy 3. Interval development of left axillary lymphadenopathy 4. Mottled bony trabecular pattern HEAD CT: 1. No acute intracranial abnormality. 2. Hypodensity within the left parietal lobe. 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 ABDOMINAL US: 1. No cholelithiasis or biliary ductal dilatation. 2. Heterogeneity of liver parenchyma could suggest underlying steatosis or fibrosis. BRAIN MRI: 1. Numerous enhancing lesions at the tello-white junction characteristic of metastatic disease, some of the larger lesions with surrounding edema. Correlate for underlying primary malignancy. Consultations: NEUROLOGY HEME/ONCO RADIATION/ONCOLOGY Medication Reconciliation New Medications: Lorazepam (Ativan) 0.5 Mg Tab 0.5 MG PO Q6H PRN for Anxiety/Agitation, #30 TAB Oxycodone Oral Soln (Roxicodone Oral Soln) 5 Mg/5 Ml Soln 5 ML PO Q4 PRN for Pain for 7 Days Continued Medications: Acetaminophen (Tylenol Arthritis Ext Rel) 650 Mg Cplt 650 MG PO Q12 PRN for Pain, CAP Aspirin (Aspir-81) 81 Mg Tab 1 TAB PO DAILY for 30 Days, #30 TAB 5 Refills Hydroxyzine Hcl (Hydroxyzine Hcl) 10 Mg/5 Ml Syp 5 ML PO TID PRN for Anxiety for 10 Days, #150 ML Losartan Potassium (Cozaar) 50 Mg Tab 50 MG PO DAILY, TAB Discontinued Medications: [Note] () PT'S DAUGHTER REPORTS PT HAS TAKEN NO MEDICATIONS IN AT LEAST 2 WEEKS (OTHER THAN ARTHRITIS TYLENOL) AND IS BEING RE-EVALUATED BY HER TOUR ACTOR. Admission Information HPI (per Admitting provider): Patient is an 82 yo female who was brought from home by her daughter for complaints that the patient needs placement and 24 hour supervision. The patient was reportedly lost and wandering her neighborhood and has become increasingly confused, neglectful, and forgetful since last summer. The patient was seen after she received ativan and thus she was unable to provide any ROS or history. All information was obtained from the patient's daughter and the medical records. The patient has been steadily declining since last summer when her of 60+ years . Since then the patient experienced stages of grief but also stopped eating, lost weight, became angry, withdrawn, and forgetful. The patient resides with her grandson who works during the day and the patient is home alone. The daughter lives in [place] and her brother in [place] so no other family is around. The patient has been neglecting herself, her 2 dogs, and her plants which is very unlike her. She also has a great deal of difficulty recalling short term memories. She has had outpatient work up and is demonstrating dementia, but she has drastically declined in the past 1 month and the patient is no longer safe living at home where she is alone for much of the day. The patient's daughter is here from [place] and has been looking into placement but the events from yesterday have escalated the need to find a place for the patient to live. No focal deficits noted by the family; appetite has remained poor, patient ambulates independently. The patient did have a fall earlier this month but was not brought to the hospital at the time. The patient' s daughter also reports that the patient has not slept in the last few days and that prior to her visiting, the patient was administering her own medications and was sometimes taking double doses and thus the daughter stopped all the meds for the last week. Physical Exam (per Admitting): General Appearance: WD/WN, no apparent distress Head: normocephalic, atraumatic Eyes: PERRL, EOMI, sclerae normal ENT: hearing grossly normal Neck: supple, no JVD, no carotid bruits, trachea midline Respiratory/Chest: chest non-tender, lungs clear, normal breath sounds, no respiratory distress, no accessory muscle use Cardiovascular: regular rate, rhythm, no edema, no gallop, no JVD, no murmur Abdomen/GI: normal bowel sounds, non tender, soft, no organomegaly Back: normal inspection Extremities/Musculoskelatal: no calf tenderness, normal capillary refill, + pedal edema Neurologic/Psych: + depressed affect, + disoriented, + pertinent finding Skin: normal color, warm/dry, no rash Hospital Course COGNITIVE DECLINE: Dementia with behavioral disturbance seems has undergoing workup as an outpatient and likely has dementia, but symptoms getting worse in the past month without a clear cause ct head unremarkable MRI head brain mets with edema was started on iv Decadron but stopped by neurology because of questionable edema on mri and it can cause encephalopathy oriented to name only palliative consulted appreciate inputs Plan for [place] hospice today Brain mets primary lung? seen by radiation oncology-d/w family and they seems to leaning towards comfort care heme/onco consulted family seems not want more testing will d/w family and placed palliative care consult plan for [place] hospice today 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 on non contrast CT chest Present on a CT scan in 2005 but increased in size now seen by pulmonary and no further workup planned as it is very slow growing and with current patient status LEUKOCYTOSIS: Empirically started on ceftriaxone and azithromycin to cover pulm source will f/u cx. will complete 5 day course. will stop abx ARF presented with cr 1.2 resolved will f/u labs HTN: on losartan Anemia and thrombocytopenia iron studies, vitamin b12 and folate levels unremarkable stool for [facility] hospice care DVT PROPHYLAXIS scds DISPOSITION discharge to [place] hosp[facility] Total time spent on discharge = 35MINUTES This includes examination of the patient, discharge planning, medication reconciliation, and communication with other providers. Discharge Instructions Discharge Instructions Date of Service Sep 05, 2017. Admission Reason for Admission: Ams, Lung Abnormality Discharge Discharge Diagnosis / Problem: AMS, BRAIN MASS, DEMNTIA WITH BEHVAIORAL DISTURBANCE, LUNG MASS Discharge Goals Goal(s): Decrease discomfort, Improve function Activity Recommendations Activity Level: Assistance Required . Additional Information Patient informed of condition: No (CONFUSED) Advance Directives: Yes DNR: Yes Level of Care: Other ([facility]) Communicable Disease: No Prognosis: Other (HOSPICE CARE) Philippe Catheter: No Instructions / Follow-Up Instructions / Follow-Up FOLLOWUP NEEDED Current Hospital Diet Patient's current hospital diet: AHA Diet (Heart Healthy) Discharge Diet Recommended Diet: Regular Diet, AHA Diet (Heart Healthy) Pending Studies Studies pending at discharge: no Physician Orders On Transfer Special Precautions: FALL AND ASPIRATION PRECAUTIONS Vital Signs: EVERY 8HRS Medical Emergencies . Who to Call and When: Medical Emergencies: If at any time you feel your situation is an emergency, please call 911 immediately. . Non-Emergent Contact Non-Emergency issues call your: Primary Care Provider . . "Provider Documentation" section prepared by Ryan Leal. . Core Measure Problem Core Measures: None
[2017-09-05 11:18] VITALS: BP 167/81; PULSE 97; TEMP 36.6; O2SAT 97
[2017-09-05] MEDS: ASPIRIN 81 MG ECTAB PO SCH ×2 (11:25→12:50)
[2017-09-05] MEDS: LOSARTAN POTASSIUM 50 MG TAB PO SCH (12:50)
[2017-09-05 15:23] VITALS: BP 167/81; PULSE 97; TEMP 36.6; O2SAT 97
[2017-09-05 15:34] VITALS: BP 144/83; PULSE 98; TEMP 36.6; O2SAT 95
== END 2017-09-05 16:15 | disposition hospice, inpatient (51) | DRG 57 ==
LOC: C.EDB 16:26 → C.4E 22:44 → ENRESERV 23:33 → C.4E 09-01 16:39
PROVIDERS: ADMIT Internal Medicine; ATTEND Internal Medicine
DX: G30.9 Alzheimer's disease, unspecified (principal); F02.81 Dementia in other diseases classified elsewhere, unspecified severity, with behavioral disturbance; N17.9 Acute kidney failure, unspecified; C34.90 Malignant neoplasm of unspecified part of unspecified bronchus or lung; C79.31 Secondary malignant neoplasm of brain; D72.829 Elevated white blood cell count, unspecified; D64.9 Anemia, unspecified; D69.6 Thrombocytopenia, unspecified; R63.4 Abnormal weight loss; I12.9 Hypertensive chronic kidney disease with stage 1 through stage 4 chronic kidney disease, or unspecified chronic kidney disease; N18.3 Chronic kidney disease, stage 3 (moderate); Z51.5 Encounter for palliative care; Z79.82 Long term (current) use of aspirin; Z79.899 Other long term (current) drug therapy; Z88.8 Allergy status to other drugs, medicaments and biological substances